=== PATIENT | female | born 1950 | race Caucasian/White ===

== ENCOUNTER 2020-09-03 12:14 | Inpatient (IN) | payer BC, MEDICARE ==
[~2020-09-03] VITALS: Ht 157.5 cm; Wt 83.2 kg
--- NOTE | 2020-09-03 12:20 | NUR ---
THE PATIENT IS BIBRA 89 FROM HOME C/O ALTERED MENTAL STATUS AND PER REPORT "WE FOUND THE PT ON THE FLOOR". THE PATIENT IS ALERT AND ORIENTED TO SELF AND PLACE. ABLE TO MAKE NEEDS KNOWN VERBALLY. IN ROOM AIR AND DENIES SOB. RESPIRATION REGULAR AND UNLABORED. DENIES PAIN. THE PATIENT CAME WITH LAC G 18. ALSO, NOTED LEFT UPPER CHEST UNDERSKIN PORT A CATH. THE PATIENT IS PROVIDED WITH A WARM BLANKET FOR COMFORT. ATTACHED TO THE MONITOR. WILL CONTINUE TO MONITOR. .
[2020-09-03] MEDS ORDERED: IV NS 0.9% 1,000 ML BAG IV ONE (12:30)
[2020-09-03 13:00] LABS: CALCIUM, SERUM 7.9 mg/dL (8.5-10.1); CARBON DIOXIDE 23 mmol/L (21-32); CHLORIDE 108 mmol/L (98-107); CREATININE 0.9 mg/dL (0.6-1.3); GLUCOSE 85 mg/dL (74-106); POTASSIUM 4.7 mmol/L (3.5-5.1); SODIUM SERUM 142 mmol/L (136-145); UREA NITROGEN, BLOOD 21 mg/dL (7-18)
[2020-09-03 13:01] LABS: SERUM AMMONIA 15 umol/L (11-32)
[2020-09-03 13:05] LABS: BASOPHILS % (AUTO) 0.2 % (0.0-2.0); HEMATOCRIT 38 % (33-45); LYMPHOCYTES # (AUTO) 0.8 /CMM (0.8-4.8); LYMPHOCYTES % (AUTO) 4.8 % (20.0-44.0); MEAN CORPUSCULAR HGB CONC 31 g/dl (31.0-36.0); MEAN CORPUSCULAR VOLUME 91 fL (82-100); MONOCYTES # (AUTO) 1.1 /CMM (0.1-1.30); MONOCYTES % (AUTO) 6.9 % (2.0-12.0); NEUTROPHILS # (AUTO) 9.6 /CMM (1.8-8.9); NEUTROPHILS % (AUTO) 59.7 % (43.0-81.0); PLATELET COUNT (AUTO) 68 /CMM (150-450); RED BLOOD CELL COUNT(AUTO) 4.19 MIL/uL (4.0-5.2)
[2020-09-03 13:08] LABS: EOSINOPHILS % (AUTO) 28.4 % (0.0-6.0)
--- NOTE | 2020-09-03 13:08 | NUR ---
SALVADOR, SISTER, . SISTER WANTS UPDATES.
[2020-09-03 13:15] LABS: ACETAMINOPHEN < 10 ug/ml (10-30); ALANINE AMINOTRANSFERASE 32 U/L (12-78); ALBUMIN 2.1 g/dL (3.4-5.0); ALCOHOL, BLOOD < 3 mg/dL (0-0); ALKALINE PHOSPHATASE 294 U/L (46-116); ASPARTATE AMINOTRANSFERASE 53 U/L (15-37); BILIRUBIN,DIRECT 0.3 mg/dL (0.0-0.2); BILIRUBIN,TOTAL 0.7 mg/dL (0.2-1.0); TOTAL PROTEIN, SERUM 6.2 g/dL (6.4-8.2)
--- NOTE | 2020-09-03 13:20 | NUR ---
URINE COLLECTED AND TAKEN IT TO THE LAB.
--- NOTE | 2020-09-03 13:22 | NUR ---
PAGED EPIC QUALITY MANAGEMENT COORDINATOR FOR ADMISSION
[2020-09-03] MEDS ORDERED: ENOXAPARIN SODIUM 80 MG/0.8 ML DISP.SYRIN SQ ONE (13:30)
[2020-09-03 13:32] LABS: BILIRUBIN,URINE SMALL (NEGATIVE); COLOR,URINE YELLOW (YELLOW); LEUKOCYTE ESTERASE ,URINE NEGATIVE (NEGATIVE); NITRITE, URINE NEGATIVE (NEGATIVE); PROTEIN,URINE TRACE mg/dl (NEGATIVE); UGLUCOSE NEGATIVE (NEGATIVE); UROBILINOGEN,URINE 0.2 EU/dL (0.2)
[2020-09-03] MEDS ORDERED: ENOXAPARIN SODIUM 100 MG/ML DISP.SYRIN SQ ONE (13:39)
[2020-09-03 13:41] LABS: THYROID STIMULATING HORMONE 3.914 uIU/mL (0.358-3.74)
[2020-09-03 13:52] LABS: RBC,URINE 0-2 /HPF (0-2); WBC,URINE 0-2 /HPF (0-3)
[2020-09-03 13:53] LABS: BACTERIA,URINE Rare /HPF (None Seen); SQUAMOUS EPITHELIAL CELL,UR Rare /HPF (None Seen)
[2020-09-03 13:57] LABS: BAND % (MANUAL) 1 % (0.0-5.0); EOSINOPHILS % (MANUAL) 31 % (0-4); LYMPHOCYTES % (MANUAL) 3 % (16-48); MONOCYTES % (MANUAL) 6 % (0-11.0); NEUTROPHILS % (MANUAL) 59 (42-76)
[2020-09-03] MEDS ORDERED: ENOXAPARIN SODIUM 80 MG/0.8 ML DISP.SYRIN SQ SCH (14:00)
[2020-09-03] MEDS ORDERED: ONDANSETRON HCL/PF 4 MG/2 ML VIAL IVP PRN (15:00)
[2020-09-03] MEDS ORDERED: MAGNESIUM HYDROXIDE 30 ML UDC PO PRN (15:00)
[2020-09-03] MEDS ORDERED: Z GUARD REMEDY 2 OZ OINT TP PRN (15:00)
[2020-09-03] MEDS ORDERED: ACETAMINOPHEN 325 MG TABLET PO PRN ×2 (15:00)
[2020-09-03] MEDS ORDERED: HYDROCODONE/APAP 5/325MG TABLET PO PRN ×2 (15:00)
[2020-09-03] MEDS ORDERED: MORPHINE SULFATE INJ 2 MG/ML DISP.SYRIN IV PRN ×2 (15:00)
[2020-09-03] MEDS ORDERED: MAG HYDROX/AL HYDROX/SIMETH 30 ML UDC PO PRN (15:00)
--- NOTE | 2020-09-03 15:14 | NUR ---
NURSING SUP CALLED WITH BED 309-1.
--- NOTE | 2020-09-03 15:24 | NUR ---
REPORT GIVEN TO AMBER JEFFERSON.
--- NOTE | 2020-09-03 15:48 | NUR ---
TRANSFERED THE PATIENT TO ROOM 309-1 PER ACLS PROTOCOL. THE PATIENT LEFT ER IN STABLE CONDITION.
--- NOTE | 2020-09-03 16:00 | NUR ---
NET DEVELOPER ADMITTING NOTES RECEIVED PATIENT VIA [facility] IN MEDICALLY STABLE CONDITION. VITAL SIGNS: BP: 113/71 HR 87 RR 18 TEMP 97.6 O2 96% SAFETY PRECAUTIONS IN PLACE; BED IN LOW POSITION AND LOCKED, RAILS UP X2, CALL LIGHT WITHIN REACH. WILL CONTINUE TO MONITOR PATIENT.
[2020-09-03] MEDS: IV 1/2NS 1000 ML 1,000 ML IV PRN (17:31)
[2020-09-03 18:00] VITALS: BP 113/71
[2020-09-03] MEDS: LORATADINE 10 MG TABLET PO SCH (18:13)
--- NOTE | 2020-09-03 19:04 | NUR ---
DRILLER PORTABLE CLOSING NOTES PATIENT RESTING IN BED, A/O X2. PATIENT ON ROOM AIR; BREATHING EVEN AND UNLABORED; NO SOB NOTED AT THIS TIME. NO COMPLAINS OF PAIN. TELE MONITOR WITH A CURRENT READING OF SR 87. IV ACCESS PRESENT ON LAC G #18; INFUSING .45NS @75 MLS/HR. SAFETY PRECAUTIONS IN PLACE; BED IN LOW POSITION AND LOCKED, RAILS UP X2, CALL LIGHT WITHIN REACH. WILL ENDORSE TO DIRECTOR OF EVENT SALES NURSE.
--- NOTE | 2020-09-03 19:10 | NUR ---
PROSTHETIC DENTIST OPENING NOTES: RECEIVED PATIENT IN BED,AWAKE. A/O X3. NO S/S OF DISTRESS NOTED. CALL LIGHT WITHIN REACH. BED ALARM ON. BED IN LOWEST ANDLOCKED POSITION. HOB ELEVATED.
[2020-09-03 20:00] VITALS: BP 105/63
--- NOTE | 2020-09-03 20:25 | NUR ---
RECEIVED A CRITICAL RESULTS OF TROPONIN=1.066, LANCE JACKSON INFORMED.
[2020-09-04] VITALS: BP 109/63
[2020-09-04] MEDS ORDERED: ENOXAPARIN SODIUM 80 MG/0.8 ML DISP.SYRIN SQ SCH (02:00)
[2020-09-04 04:00] VITALS: BP 114/77
--- NOTE | 2020-09-04 06:30 | NUR ---
PATIENT DID NOT VOID, BLADDER [id number] ML.
[2020-09-04 06:32] LABS: BASOPHILS % (AUTO) 0.3 % (0.0-2.0); HEMATOCRIT 35 % (33-45); HEMOGLOBIN 11.2 g/dL (11.5-14.8); LYMPHOCYTES % (AUTO) 6.7 % (20.0-44.0); MEAN CORPUSCULAR HGB CONC 32 g/dl (31.0-36.0); MEAN CORPUSCULAR VOLUME 92 fL (82-100); MONOCYTES # (AUTO) 1.1 /CMM (0.1-1.30); MONOCYTES % (AUTO) 7.5 % (2.0-12.0); NEUTROPHILS # (AUTO) 6.6 /CMM (1.8-8.9); PLATELET COUNT (AUTO) 67 /CMM (150-450); RED BLOOD CELL COUNT(AUTO) 3.82 MIL/uL (4.0-5.2); WHITE BLOOD COUNT (AUTO) 14.4 K/uL (4.3-11.0)
[2020-09-04 06:36] LABS: EOSINOPHILS % (AUTO) 39.5 % (0.0-6.0)
--- NOTE | 2020-09-04 06:54 | NUR ---
INFORMMANUEL PAULINO RE: NO VOID. BLADDER SCANNED.
[2020-09-04 07:29] LABS: ALBUMIN 1.9 g/dL (3.4-5.0); BILIRUBIN,TOTAL 0.5 mg/dL (0.2-1.0); CALCIUM, SERUM 7.5 mg/dL (8.5-10.1); CREATININE 0.9 mg/dL (0.6-1.3); MAGNESIUM 2.4 mg/dL (1.8-2.4); PHOSPHORUS 2.8 mg/dL (2.5-4.9); POTASSIUM 4.3 mmol/L (3.5-5.1); TOTAL PROTEIN, SERUM 5.8 g/dL (6.4-8.2)
[2020-09-04] MEDS: IV 1/2NS 1000 ML 1,000 ML IV PRN ×2 (07:36→18:24)
--- NOTE | 2020-09-04 07:49 | NUR ---
MS/RN OPENING NOTE RECEIVED PATIENT FROM BOARDING HOUSE COOK NURSE. PATIENT IS AWAKE IN BED. A/O X 3. NO ACUTE DISTRESS NOTED, DENIES ANY PAIN AT THIS TIME. PATIENT ON ROOM AIR TOLERATING WELL, NO SOB NOTED, BREATHING EVEN, NON LABORED. PER BOARDING HOUSE COOK REPORT PATIENT DID NOT VOID AND HAD BLADDER SCANNED SHOWING 253ML, WITH NO COMPLAINTS OF PAIN/DISCOMFORT, PRESSURE, OR URGENCY. BOARDING HOUSE COOK NURSE NOTIFIED MD, AWAITING RESPONSE. SAFETY MEASURES IN PLACE, BED LOCKED AND IN LOWEST POSITION, CALL LIGHT WITHIN REACH. WILL CONTINUE TO MONITOR AND ENSURE SAFETY.
[2020-09-04] MEDS: LORATADINE 10 MG TABLET PO SCH (08:15)
[2020-09-04 08:48] LABS: IRON, SERUM 38 ug/dl (50-175); TOTAL IRON BINDING CAPACITY 200 ug/dl (250-450)
[2020-09-04] MEDS ORDERED: ASPIRIN 81 MG TAB.CHEW PO SCH (09:00)
[2020-09-04 09:01] LABS: FERRITIN 346 ng/mL (8-388)
[2020-09-04] MEDS: IPRATROPIUM NEB FS 0.5 MG/2.5 ML AMPUL.NEB NEB SCH ×4 (09:36→19:22)
[2020-09-04] MEDS: ALBUTEROL FS 2.5 MG/3 ML VIAL.NEB NEB SCH ×4 (09:37→19:22)
[2020-09-04] MEDS ORDERED: diphenhydrAMINE HCL 25 MG CAPSULE PO PRN (10:30)
[2020-09-04] MEDS: HYDROCORTISONE 2.5% CREAM 28.4 GM TUBE TP SCH ×2 (11:45→17:24)
[2020-09-04] MEDS: METOPROLOL TARTRATE 50 MG TABLET PO SCH ×3 (12:00→23:23)
[2020-09-04 13:56] LABS: EOSINOPHILS % (MANUAL) 35 % (0-4); LYMPHOCYTES % (MANUAL) 7 % (16-48); MONOCYTES % (MANUAL) 6 % (0-11.0); NEUTROPHILS % (MANUAL) 52 (42-76)
[2020-09-04 16:00] VITALS: BP 125/76
--- NOTE | 2020-09-04 19:06 | NUR ---
MS/RN CLOSING NOTE PATIENT IS AWAKE IN BED. A/O X 3. NO ACUTE DISTRESS NOTED, DENIES ANY PAIN AT THIS TIME. PATIENT ON ROOM AIR TOLERATING WELL, NO SOB NOTED, BREATHING EVEN, NON LABORED. SAFETY MEASURES IN PLACE, BED LOCKED AND IN LOWEST POSITION, CALL LIGHT WITHIN REACH. ALL NEEDS MET THROUGHOUT THE SHIFT. WILL ENDORSE TO ACTIVATED SLUDGE ATTENDANT NURSE.
[2020-09-04 20:00] VITALS: BP_SYST 117; BP_SYST 118; BP_DIAS 61; BP_DIAS 65
[2020-09-04] MEDS: methylPREDNISolone SOD SUCC 125 MG/2ML VIAL IV SCH (20:00)
--- NOTE | 2020-09-04 20:22 | NUR ---
RN NOTES NEW ORDER OF METHYLPREDNISONE, PER SISTER AND CHRIS STEINBERG, TO HOLD MEDICATION, NEEDS APPROVAL OF PATIENT'S REGULAR ONCOLOGIST. ASKED PATIENT ABOUT INFORMATION ON ONCOLOGIST, PATIENT UNABLE TO GIVE INFORMATION DUE TO WEAKNESS, UNABLE TO TALK, ONLY MOUTH'S WORDS. SISTER ALSO AGREEABLE TO HOLD MEDICATION FOR NOW. Addendum: 09/05/20 at 0328 by ISIS CAST RN PATIENT AGREEABLE TO HOLD STEROIDS FOR NOW.
[2020-09-05] VITALS: BP 129/69
[2020-09-05 04:00] VITALS: BP 132/81
[2020-09-05] MEDS: METOPROLOL TARTRATE 50 MG TABLET PO SCH ×3 (05:52→17:18)
[2020-09-05 06:49] LABS: BASOPHILS % (AUTO) 0.2 % (0.0-2.0); HEMATOCRIT 37 % (33-45); HEMOGLOBIN 11.5 g/dL (11.5-14.8); LYMPHOCYTES # (AUTO) 0.9 /CMM (0.8-4.8); LYMPHOCYTES % (AUTO) 5.5 % (20.0-44.0); MEAN CORPUSCULAR HGB CONC 31 g/dl (31.0-36.0); MEAN CORPUSCULAR VOLUME 93 fL (82-100); MONOCYTES # (AUTO) 1.1 /CMM (0.1-1.30); MONOCYTES % (AUTO) 6.5 % (2.0-12.0); NEUTROPHILS # (AUTO) 9.1 /CMM (1.8-8.9); NEUTROPHILS % (AUTO) 53.5 % (43.0-81.0); RED BLOOD CELL COUNT(AUTO) 3.95 MIL/uL (4.0-5.2)
[2020-09-05] MEDS: IV 1/2NS 1000 ML 1,000 ML IV PRN ×2 (06:49→17:18)
[2020-09-05 06:57] LABS: ALBUMIN 1.7 g/dL (3.4-5.0); BILIRUBIN,TOTAL 0.7 mg/dL (0.2-1.0); CALCIUM, SERUM 7.1 mg/dL (8.5-10.1); CREATININE 0.8 mg/dL (0.6-1.3); MAGNESIUM 2.3 mg/dL (1.8-2.4); PHOSPHORUS 2.4 mg/dL (2.5-4.9); POTASSIUM 4.4 mmol/L (3.5-5.1); TOTAL PROTEIN, SERUM 5.4 g/dL (6.4-8.2)
[2020-09-05 07:18] LABS: EOSINOPHILS % (AUTO) 34.3 % (0.0-6.0); PLATELET COUNT (AUTO) 47 /CMM (150-450)
--- NOTE | 2020-09-05 07:43 | NUR ---
RN NOTES PM SHIFT LETHARGIC, AROUSEABLE BY VOICE AND TOUCH, ALERT AND ORIENTED X1, ON ROOM AIR, NO COMPLAIN OF PAIN, UNABLE TO TALK, MOUTHS WORDS, SHAKES AND NOD HEAD FOR YES OR NO, HX OF ESOPHAGEAL CANCER, SR ON THE TELE, PER DR. ABBOTT, RULE OUT AUTO IMMUNE INDUCED ENCEPHALOPATHY, AM LABS. WILL NEED MEDICAL RECORDS FROM [facility] ONCOLOGY DR. BERONICA NOLAN NOTIFIED DR. AGARWAL REGARDING TROPONIN 1.884, NO NEW ORDER, ALSO NOTIFIED DR. ABBOTT REGARDING PLATELET OF 47, AWAITING RESPONSE.
--- NOTE | 2020-09-05 07:47 | NUR ---
RN NOTES NOTIFIED DR. ABBOTT OF PLATELET OF 47, NO NEW ORDER
[2020-09-05 08:00] VITALS: BP 122/80
[2020-09-05] MEDS ORDERED: LACTULOSE 10 G/15 ML UDC (PYXIS) PO PRN (08:00)
--- NOTE | 2020-09-05 08:00 | NUR ---
RN Opening note Received patient in bed, AO x 2-3, able to responds all stimuli. Patient having US ABD. Respiratory even and unlabored on room air. Skin is warm to touch, keep clean/dry, intact IV site, and keep remains intact placement. Kept elevated HOB for ensure airway and aspiration precaution, also lowest bed position for safety. Call light within reach, will continue to monitor. Addendum: 09/05/20 at 0815 by SHELL BOSWELL RN Error
--- NOTE | 2020-09-05 08:00 | NUR ---
RN Opening note Received patient in bed, lethargic. Patient having US ABD. Respiratory even and unlabored on room air. Skin is warm to touch, keep clean/dry, intact IV site, and keep remains intact placement. Kept elevated HOB for ensure airway and aspiration precaution, also lowest bed position for safety. Noticed PLT 47, Trop 1.884 and MD aware NNO. Call light within reach, will continue to monitor.
[2020-09-05] MEDS: ALBUTEROL FS 2.5 MG/3 ML VIAL.NEB NEB SCH ×4 (08:27→20:23)
[2020-09-05] MEDS: IPRATROPIUM NEB FS 0.5 MG/2.5 ML AMPUL.NEB NEB SCH ×4 (08:27→20:23)
[2020-09-05] MEDS: HYDROCORTISONE 2.5% CREAM 28.4 GM TUBE TP SCH ×2 (08:50→17:23)
[2020-09-05] MEDS: methylPREDNISolone SOD SUCC 125 MG/2ML VIAL IV SCH (08:51)
[2020-09-05] MEDS: LORATADINE 10 MG TABLET PO SCH (08:51)
--- NOTE | 2020-09-05 08:51 | NUR ---
Patient seen by ST who recommended hold oral intake or medications due to does not awake condition.
[2020-09-05 10:29] LABS: EOSINOPHILS % (MANUAL) 33 % (0-4); MONOCYTES % (MANUAL) 4 % (0-11.0); NEUTROPHILS % (MANUAL) 63 (42-76)
[2020-09-05] MEDS ORDERED: NEUTRA PHOS 1 POWD.PACKET PO ONE (10:30)
--- NOTE | 2020-09-05 10:46 | NUR ---
Patient unable to swallow, will hold medication MD made aware.
[2020-09-05] MEDS: LACTULOSE UDC 200 G in SODIUM CHLORIDE IRRIG SOLUTION 400 ML IR SCH ×3 (11:49→20:30)
--- NOTE | 2020-09-05 12:24 | NUR ---
Decrease bp: 95/58, p-84, will hold Lopressor.
[2020-09-05 12:52] LABS: LYMPHOCYTES % (MANUAL) 0 % (16-48)
--- NOTE | 2020-09-05 14:47 | NUR ---
Breaking Machine Operator: senior manager creative services consult was requested per MD as the patient lives alone. Patient is a 70-year-old, white female. Per ED physician, patient was admitted on 09/03/2020 due to altered mental status after being found on the floor of her home ([address] [place] [address]; [phone]). SW attempted to meet with the patient in her hospital room on the med-surgical unit. Patient was lethargic and therefore SW was unable to interview the patient. KRAIG spoke to AMBER Geiger who had reached out to the patients sister Adelina ([phone]). AMBER Geiger provided this SW with Kallie contact information. KRAIG called patients sister Adelina, and spoke to Adelina to discuss coordination of care. Adelina mentioned that the patient is independent but has had some trouble standing for the past couple of weeks. KRAIG asked Adelina if the patient is independent with her ADLs and she reported that the patient can care for herself. KRAIG asked Adelina about the patients finances and she reported that the patient receives pension, Medicare, and Social Security Income. KRAIG discussed discharge plan with Adelina: home v. alternative option. Patient's family is unsure about discharge options at this time. KRAIG will work nursing and case management, as needed, to ensure a safe and proper discharge plan. SW will follow-up with patient, and will remain available to the patient and family, as needed.
[2020-09-05 16:00] VITALS: BP 111/68
--- NOTE | 2020-09-05 18:25 | NUR ---
RN Closing note Patient in bed, lethargic condition but stable all vital signs. Continue to given Lactulose enema for high ammonia level. Patient done ST evel and kept hold oral intake include medications.due to patient is not awake. Faxed over and requested medical record to [facility] oncology/Dr. Reny Jimenez. Respiratory even and unlabored on room air, skin is warm to touch, keep clean/dry, skin care provided. Kept elevated HOB for ensure airway and aspiration precaution, also lowest bed position for safety. Call light within reach, will endorse global marketing operations manager.
[2020-09-05 20:00] VITALS: BP 104/58
[2020-09-06 00:26] VITALS: BP 96/66
[2020-09-06] MEDS ORDERED: CEFTRIAXONE 1 G VIAL ONE ×2 (00:32→01:02)
[2020-09-06] MEDS ORDERED: VANCOMYCIN 1 GM VIAL ONE (00:33)
[2020-09-06] MEDS: LACTULOSE UDC 200 G in SODIUM CHLORIDE IRRIG SOLUTION 400 ML IR SCH ×7 (00:33→23:56)
[2020-09-06] MEDS: CEFTRIAXONE 2 G in IV D5W 100 ML IV SCH ×2 (00:38→20:41)
[2020-09-06] MEDS: VANCOMYCIN 1 GM in IV D5W 250 ML IV SCH ×2 (01:16→17:21)
[2020-09-06] MEDS: METOPROLOL TARTRATE 50 MG TABLET PO SCH ×5 (06:00→23:54)
[2020-09-06 06:06] VITALS: BP 113/57
--- NOTE | 2020-09-06 06:08 | NUR ---
MS RN CLOSING NOTES: PATIENT IN BED, STILL LETHARGIC, COUGHS OCCASIONALLY,NO PHLEGM. HOB ELEVATED AT ALL TIMES. NO S/S OF DISTRESS NOTED. CALL LIGHT WITHIN REACH. BED ALARM ON. BED IN LOWEST AND LOCKED POSITION. OCCASIONALLY SCRATCHES HER SKIN ON THE NECK PART. HEELS OFFLOADED. TURNED AND REPOSITIONED [id number]. STILL WITH GENERALIZED RASHES. LACTULOSE RECTAL IRRIGATION DONE [id number]. KEPT PATIENT DRY AND CLEANED. WITH O2 AT 3L/MIN NASAL CANNULA.
[2020-09-06 06:26] LABS: BASOPHILS % (AUTO) 0.2 % (0.0-2.0); EOSINOPHILS % (AUTO) 0.4 % (0.0-6.0); HEMATOCRIT 34 % (33-45); HEMOGLOBIN 10.7 g/dL (11.5-14.8); LYMPHOCYTES # (AUTO) 0.9 /CMM (0.8-4.8); LYMPHOCYTES % (AUTO) 7.6 % (20.0-44.0); MEAN CORPUSCULAR HGB CONC 31 g/dl (31.0-36.0); MEAN CORPUSCULAR VOLUME 94 fL (82-100); MONOCYTES % (AUTO) 8.7 % (2.0-12.0); NEUTROPHILS # (AUTO) 9.6 /CMM (1.8-8.9); NEUTROPHILS % (AUTO) 83.1 % (43.0-81.0); PLATELET COUNT (AUTO) 57 /CMM (150-450); RED BLOOD CELL COUNT(AUTO) 3.62 MIL/uL (4.0-5.2); WHITE BLOOD COUNT (AUTO) 11.5 K/uL (4.3-11.0)
[2020-09-06 06:48] LABS: CREATININE 0.8 mg/dL (0.6-1.3); MAGNESIUM 2.6 mg/dL (1.8-2.4); PHOSPHORUS 2.9 mg/dL (2.5-4.9); POTASSIUM 4.1 mmol/L (3.5-5.1)
[2020-09-06] MEDS: ALBUTEROL FS 2.5 MG/3 ML VIAL.NEB NEB SCH ×4 (07:33→20:20)
[2020-09-06] MEDS: IPRATROPIUM NEB FS 0.5 MG/2.5 ML AMPUL.NEB NEB SCH ×4 (07:33→20:20)
--- NOTE | 2020-09-06 07:35 | NUR ---
RN NOTE RECEIVED PATIENT IN BED. LETHARGIC, NOT RESPONSIVE. ON 3 LPM, NC. NO SOB NOTED. IN NO APPARENT DISTRESS. IV ACCESS ON R HAND #22 G, INTACT, 1/2 NS RUNNING @ 75 ML/HR. SAFETY/FALL/ASPIRATION PRECAUTIONS OBSERVED. HOB ELEVATED. SIDE RAILS UP X2. CALL LIGHT WITHIN REACH. WILL CONTINUE PLAN OF CARE.
[2020-09-06 08:00] VITALS: BP 90/56
[2020-09-06 08:07] LABS: *ANA ANTI-CENTROMERE B AB <0.2 AI (0.0-0.9); *ANA ANTI-DNA(DS) AB, QN <1 IU/mL (0-9); *ANA ANTI-JO-1 <0.2 AI (0.0-0.9); *ANA ANTICHROMATIN ANTIBODY <0.2 AI (0.0-0.9); *ANA RNP ANTIBODIES <0.2 AI (0.0-0.9); *ANA SJOGREN'S ANTI-SS-A <0.2 AI (0.0-0.9); *ANA SJOGREN'S ANTI-SS-B <0.2 AI (0.0-0.9); *ANAANTI-SCLERODERMA-70 AB <0.2 AI (0.0-0.9); *ANASMITH AB <0.2 AI (0.0-0.9); IMMUNOGLOBULIN A, SERUM 283 mg/dL (87-352); IMMUNOGLOBULIN G, SERUM 1302 mg/dL (586-1602); IMMUNOGLOBULIN M, SERUM 116 mg/dL (26-217)
[2020-09-06] MEDS: LORATADINE 10 MG TABLET PO SCH (08:56)
[2020-09-06] MEDS: methylPREDNISolone SOD SUCC 125 MG/2ML VIAL IV SCH (09:00)
[2020-09-06] MEDS: HYDROCORTISONE 2.5% CREAM 28.4 GM TUBE TP SCH ×2 (09:00→17:21)
--- NOTE | 2020-09-06 09:23 | NUR ---
MS RN NOTE HELD PO MED. PATIENT WAS SEEN LETHARGIC AND NOT FULLY AWAKE. PT IS AT RISK FOR ASPIRATION. WILL CONTINUE TO MONITOR THROUGHOUT THE SHIFT.
--- NOTE | 2020-09-06 10:55 | NUR ---
RN NOTE LAB CALLED, SPOKE WITH CRISTHIAN, CRITICAL VALUE TROPONIN 0.931, INFORMED CRISTIANE GUEVARA NP.
[2020-09-06 11:07] LABS: *SPE A/G RATIO 0.6 (0.7-1.7); *SPE ALBUMIN 1.9 g/dL (2.9-4.4); *SPE ALPHA-1-GLOBULIN 0.4 g/dL (0.0-0.4); *SPE ALPHA-2-GLOBULIN 0.7 g/dL (0.4-1.0); *SPE BETA GLOBULIN 0.8 g/dL (0.7-1.3); *SPE GLOBULIN, TOTAL 3.1 g/dL (2.2-3.9); *SPE M-SPIKE Not Observed g/dL (Not Observed); *SPEGAMMA GLOBULIN 1.3 g/dL (0.4-1.8)
--- NOTE | 2020-09-06 12:19 | NUR ---
RN NOTE WITHHOLDING PO MEDS. PT IS LETHARGIC. WILL CONTINUE TO MONITOR THROUGHOUT THE SHIFT.
[2020-09-06] MEDS ORDERED: LIDOCAINE MPF 1%-EPI 1:200,000 30 ML VIAL IJ ONE (14:00)
--- NOTE | 2020-09-06 14:03 | NUR ---
RN NOTE PHONE CONSENT FROM THE PT'S SISTER (SALVADOR) FOR PUNCH BIOPSY OF THE SKIN. CONSENT SIGNED WITH CRISTIANE SIMPSON AND I A WITNESS.
[2020-09-06] MEDS: IV D5/0.45 NACL 1,000 ML IV PRN (15:13)
[2020-09-06 16:00] VITALS: BP 108/76
--- NOTE | 2020-09-06 17:27 | NUR ---
RN NOTE PATIENT STILL LETHARGIC OF THIS MOMENT. HELD PO METOPROLOL.
--- NOTE | 2020-09-06 18:34 | NUR ---
MS RN CLOSING NOTE PATIENT IN BED. LETHARGIC, SEEN SOME IMPROVEMENTS THIS LATE AFTERNOON. PATIENT WAS OPENING HER EYES. CONSUMED BOWL HALF OF PUREE. OBEYS SIMPLE COMMANDS, SQUEEZE HANDS UPON COMMAND. CURRENTLY ON NC AT 3 LPM. NO SOB NOTED. IN NO APPARENT DISTRESS. IV ACCESS ON R HAND #22 G, INTACT AND PATENT, D5 1/2 NS RUNNING @ 70 ML/HR. ROUTINE MEDS WERE GIVEN ORDERED. CHANGED BED TO SPECIALTY MATTRESS. SAFETY/FALL/ASPIRATION PRECAUTIONS OBSERVED. HOB ELEVATED. SIDE RAILS UP X2. CALL LIGHT WITHIN REACH. WILL ENDORSE CONTINUITY OF CARE TO ONCOMING SHIFT.
--- NOTE | 2020-09-06 19:05 | NUR ---
MS RN OPENING NOTES: RECEIVED PT IN BED, AWAKE, LEFT EYE FULLY OPEN, RIGHT EYE SLIGHTLY OPEN. ASKED IF SHE IS OKAY, PATIENT ANSWERED BACK BY NODDING HER HEAD. ASKED IF SHE CAN SQUISH MY HAND AND PATIENT DID WITH HER RIGHT HAND SLIGHTLY, LEFT HAND IS MORE WEAKER THAN THE RIGHT HAND BUT SHE TRIED. HOB ELEVATED AT 35 DEGREES. NO S/S OF DISTRESS NOTED. CALL LIGHT WITHIN REACH AND PATIENT IS HOLDING IT. BED ALARM ON. BED IN LOWEST AND LOCKED POSITION. ON O2 AT 3L/MIN NASLA CANNULA.
[2020-09-06 20:30] VITALS: BP 118/80
--- NOTE | 2020-09-06 20:31 | NUR ---
INFORMED DR HUGGINS WITH THE RESULTS OF THE MRI OF THE BRAIN.CHARGE NURSE ROWAN MADE AWARE.
[2020-09-06] MEDS ORDERED: GADOTERATE MEGLUMINE 10 MMOL/20 ML VIAL IV ONE (20:54)
[2020-09-06] MEDS: ENSURE ENLIVE CHOC 237 ML CAN PO SCH (21:00)
--- NOTE | 2020-09-06 21:19 | NUR ---
CALLED DR GLASS AND RELAYED RESULTS OF THE MRI OF THE BRAIN WITH ORDERS MADE AND CARRIED OUT.
[2020-09-06] MEDS ORDERED: ASPIRIN 81 MG TAB.CHEW PO SCH (21:30)
[2020-09-06] MEDS ORDERED: CLOPIDOGREL BISULFATE 75 MG TABLET PO ONE (21:30)
--- NOTE | 2020-09-06 22:12 | NUR ---
ASA AND PLAVIX MEDS CRUSHED GIVEN WITH PUDDING, GIVEN AT SLOW RATE ONE TEASPOON SIP OF WATER AT A TIME, PATIENT ABLE TO SWALLOW WITHOUT DIFFICULTIES AND NO COUGHING. PATIENT ON 90 DEGREES POSITION. SWALLOW SAFETY PRECAUTIONS FOLLOWED RECOMMENDED BY THE SPEECH THERAPIST, SIGN POSTED IN THE ROOM. PATIENT IS FULLY AWAKE. FOLLOWS COMMANDS LIKE WHEN ASKED HER TO OPEN HER MOUTH, PATIENT FOLLOWED. WILL KEEP THE UPRIGHT POSITION AT FOR 30 MINS AFTER THE MED.
[2020-09-07 00:02] VITALS: BP 115/65
[2020-09-07 05:01] LABS: OCCULT BLOOD STOOL POSITIVE (NEGATIVE)
[2020-09-07] MEDS: LACTULOSE UDC 200 G in SODIUM CHLORIDE IRRIG SOLUTION 400 ML IR SCH ×6 (05:18→22:57)
[2020-09-07 05:33] VITALS: BP 129/74
[2020-09-07] MEDS: METOPROLOL TARTRATE 50 MG TABLET PO SCH ×4 (05:33→22:58)
[2020-09-07 06:03] LABS: BASOPHILS # (AUTO) 0.2 /CMM (0.0-0.2); BASOPHILS % (AUTO) 1.1 % (0.0-2.0); EOSINOPHILS % (AUTO) 0.2 % (0.0-6.0); HEMATOCRIT 37 % (33-45); HEMOGLOBIN 11.4 g/dL (11.5-14.8); LYMPHOCYTES # (AUTO) 0.6 /CMM (0.8-4.8); LYMPHOCYTES % (AUTO) 4.6 % (20.0-44.0); MEAN CORPUSCULAR HGB CONC 31 g/dl (31.0-36.0); MEAN CORPUSCULAR VOLUME 93 fL (82-100); MONOCYTES % (AUTO) 7.4 % (2.0-12.0); NEUTROPHILS # (AUTO) 11.9 /CMM (1.8-8.9); NEUTROPHILS % (AUTO) 86.7 % (43.0-81.0); PLATELET COUNT (AUTO) 80 /CMM (150-450); RED BLOOD CELL COUNT(AUTO) 3.97 MIL/uL (4.0-5.2); WHITE BLOOD COUNT (AUTO) 13.7 K/uL (4.3-11.0)
--- NOTE | 2020-09-07 06:25 | NUR ---
MS RN CLOSING NOTES: PATIENT IN BED, AWAKE, ALERT, NO S/S OF DISTRESS NOTED. CALL LIGHT WITHIN REACH. BED ALARM ON. BED IN LOWEST AND LOCKED POSITION. HOB ELEVATED AT ALL TIMES. OFFLOADED. TURNED AND REPOSITIONED Q2 HOURS.
[2020-09-07 06:51] LABS: CREATININE 0.8 mg/dL (0.6-1.3); MAGNESIUM 2.8 mg/dL (1.8-2.4); POTASSIUM 4.1 mmol/L (3.5-5.1)
--- NOTE | 2020-09-07 07:30 | NUR ---
MS OPENING NOTE PATIENT ALERT, ABLE TO OPEN EYES AND NOD HEAD WITH VERBAL AND TACTILE. ABLE TO FOLLOW SOME INSTRUCTIONS. RASHES/HIVES THROUGHOUT THE BODY OBSERVED. IV SITE INTACT AND PATENT. ASPIRATION PRECAUTIONS IN PLACE: HOB ELEVATED AT ALL TIMES. SAFETY PRECAUTIONS IN PLACE. BED IN LOWEST POSITION, LOCKED IN PLACE, AND SIDE RAILS UP. WILL CONTINUE TO MONITOR.
[2020-09-07] MEDS: ALBUTEROL FS 2.5 MG/3 ML VIAL.NEB NEB SCH ×4 (07:51→19:34)
[2020-09-07] MEDS: IPRATROPIUM NEB FS 0.5 MG/2.5 ML AMPUL.NEB NEB SCH ×4 (07:51→19:35)
[2020-09-07 08:00] VITALS: BP 113/73
--- NOTE | 2020-09-07 08:20 | NUR ---
MS RN DUE MEDS GIVEN, PATIENT FAIRLY TOLERATED W/ COUGHING UPON TAKING CRUSHED MEDS, WILL HOLD PO INTAKE AT THIS TIME, WILL WAIT FOR SWALLOW EVAL TO BE DONE, LANCE SAUER IS AWARE.
[2020-09-07] MEDS ORDERED: CLOPIDOGREL BISULFATE 75 MG TABLET PO SCH (09:00)
--- NOTE | 2020-09-07 09:00 | NUR ---
MS RN STROKE ASSESSMENT INITIATED, WILL WAIT FOR FURTHER ORDERS.
[2020-09-07] MEDS: IV D5/0.45 NACL 1,000 ML IV PRN ×2 (09:01→22:49)
[2020-09-07] MEDS: ENSURE ENLIVE CHOC 237 ML CAN PO SCH ×2 (09:46→17:00)
[2020-09-07] MEDS: methylPREDNISolone SOD SUCC 125 MG/2ML VIAL IV SCH (09:46)
[2020-09-07] MEDS: LORATADINE 10 MG TABLET PO SCH (09:46)
[2020-09-07] MEDS: HYDROCORTISONE 2.5% CREAM 28.4 GM TUBE TP SCH ×2 (09:46→18:24)
[2020-09-07] MEDS: VANCOMYCIN 1 GM in IV D5W 250 ML IV SCH (09:47)
[2020-09-07] MEDS: ASPIRIN 81 MG TAB.CHEW PO SCH (09:47)
[2020-09-07 09:59] LABS: LYMPHOCYTES % (MANUAL) 7 % (16-48); MONOCYTES % (MANUAL) 7 % (0-11.0); NEUTROPHILS % (MANUAL) 86 (42-76)
[2020-09-07] MEDS ORDERED: HEPARIN INFUSION/D5W 500 ML IV PRN (11:30)
--- NOTE | 2020-09-07 11:30 | NUR ---
MS RN DR. MARINO ORDERED HEPARIN DRIP TO BE INITIATED, WILL CALL AND MADE HER AWARE,PATIENT HAS DARK STOOL, POSITIVE OCCULT NOTED, AND DR. AGARWAL DOES NOT WANT TO INITIATE ANTI COAG THIS TIME.
--- NOTE | 2020-09-07 12:00 | NUR ---
MS RN DR. ABBOTT CALLED BACK , WANTS TO CONTACT DR. SANCHEZ TO SPEAK W/ DAUGHTER FIRST.
--- NOTE | 2020-09-07 13:00 | NUR ---
MS CLARK CEPHULAC NOT GIVEN AT THIS TIME, PATIENT HAS ELEVATED HR-170, WILL MONITOR PATIENT.
--- NOTE | 2020-09-07 15:05 | NUR ---
SS NOTE: SW attempted to meet with pt. to complete PHQ9 for code Stroke. However, The pt. is not awake or alert, with eyes closed and not rousable to verbal cues. SW called pt.'s name put multiple times and no response from pt. KRAIG spoke to charge nurse, Shari who stated that the Hospitalist, Cristi Kirkland will speak to the family about placing this pt. on Hospice. Noted. SW will be available as needed.
--- NOTE | 2020-09-07 15:40 | NUR ---
MS RN WAS SEEN BY DR. BERNAL, NO ORDER NOTED.
[2020-09-07] MEDS: HEPARIN INFUSION/D5W 500 ML IV PRN (15:57)
[2020-09-07 16:00] VITALS: BP 112/71
--- NOTE | 2020-09-07 16:00 | NUR ---
MS CLARK HEPARIN DRIP WAS INITIATED/ W/O ADVERSE REACTION. WILL MONITOR PATIENT.
--- NOTE | 2020-09-07 18:47 | NUR ---
MS RN ON BED, ALL NEEDS ATTENDED, NO DISTRESS NOTED,WILL ENDORSE TO BALLET DANCER FOR DICKSON.
--- NOTE | 2020-09-07 19:05 | NUR ---
SAFEMAKER OPENING NOTES: RECEIVED PATIENT IN BED, AWAKE, EYES ARE FULLY OPEN. HOB ELEVATED AT 35 DEGREES. BED ALARM ON. BED IN LOWEST AND LOCKED POSITION. ON HEPARIN DRIP [id number] UNITS/HOUR. PATIENT IS NPO. ACCORDING TO THE DAYSHIFT RN PATIENT WAS ABLE TO TALK. WITH O2 AT 3L/MIN NASAL CANNULA.
[2020-09-07 20:00] VITALS: BP 118/68
--- NOTE | 2020-09-07 20:35 | NUR ---
Send messages to Dr Jones RE: if it's okay to hold the lactulose irrigations for tonight and the morning doses due to patient is on heparin drip now and had an episode of black stool and positive for stool OB.
[2020-09-07] MEDS: CEFTRIAXONE 2 G in IV D5W 100 ML IV SCH (20:51)
--- NOTE | 2020-09-07 23:22 | NUR ---
CALLED THE EPIC RE: TO INFORM MD FOR THE OACM=773.3 SECONDS, WILL PAGE THE DOCTOR TO CALL BACK. CHARGE NURSE NICOLASA MADE AWARE.
--- NOTE | 2020-09-07 23:50 | NUR ---
DR HUGGINS CALLED BACK AND INFORMED OF qMST=073.3 SECONDS, MD STATED TO FOLLOW THE PROTOCOL. CHARGE NURSE NICOLASA MADE AWARE.
--- NOTE | 2020-09-07 23:52 | NUR ---
SENT MESSAGES TO DR HUGGINS RE: CLARIFICATIONS OF THE ORDER IF MD WANTS TO HOLD THE HEPARIN DRIP FOR AN HOUR THEN DECREASE DRIP BY 3 UNITS/KG/H, WAITING FOR THE MD RESPONSE.
[2020-09-08] VITALS (7 sets, daily range): BP systolic 114–134; BP diastolic 62–77
--- NOTE | 2020-09-08 00:15 | NUR ---
HEPARIN DRIP HELD PER MD ORDER.
--- NOTE | 2020-09-08 01:15 | NUR ---
HEPARIN DRIP RESUMED AT 1200 UNITS/ HOUR. NEXT aPTT DRAW WILL BE AT 0715, WILL ENDORSE TO THE NEXT SHIFT RN.
--- NOTE | 2020-09-08 02:56 | NUR ---
Patient had a BM, greenish, liquidy, moderate amount, cleansed with soap and water, pat dry, and mepilex foam dressing placed on the sacral area. Turned patient to the right side, heels offloaded.HOB elevated at 35 degrees.
[2020-09-08] MEDS: LACTULOSE UDC 200 G in SODIUM CHLORIDE IRRIG SOLUTION 400 ML IR SCH ×3 (03:00→11:00)
[2020-09-08] MEDS: VANCOMYCIN 1 GM in IV D5W 250 ML IV SCH ×2 (04:41→22:16)
[2020-09-08] MEDS: METOPROLOL TARTRATE 50 MG TABLET PO SCH ×3 (06:00→18:12)
--- NOTE | 2020-09-08 06:11 | NUR ---
MANAGER CLOSING NOTES: PATIENT IN BED, AWAKE, ALERT. EARLIER THIS MORNING PATIENT SAID" ITCHY". NO S/S OF DISTRESS NOTED. CALL LIGHT WITHIN REACH. BED ALARM ON. BED IN LOWEST AND LOCKED POSITION. HOB ELEVATED AT ALL TIMES. NO BLEEDING NOTED. NO MELENA. NO COMPLAIN OF PAIN. ON HEPARIN DRIP AT 1200 UNITS/HOUR. TURNED AND REPOSITIONED Q 2HOURS. HEELS OFFLOADED. NEXT aPTT DRAW WILL BE AT 0715, WILL ENDORSE TO THE NEXT SHIFT RN.
[2020-09-08 07:34] LABS: BASOPHILS % (AUTO) 0.2 % (0.0-2.0); HEMATOCRIT 35 % (33-45); HEMOGLOBIN 11.1 g/dL (11.5-14.8); LYMPHOCYTES # (AUTO) 0.9 /CMM (0.8-4.8); LYMPHOCYTES % (AUTO) 4.1 % (20.0-44.0); MEAN CORPUSCULAR HGB CONC 32 g/dl (31.0-36.0); MEAN CORPUSCULAR VOLUME 91 fL (82-100); MONOCYTES # (AUTO) 1.2 /CMM (0.1-1.30); MONOCYTES % (AUTO) 5.5 % (2.0-12.0); PLATELET COUNT (AUTO) 91 /CMM (150-450); RED BLOOD CELL COUNT(AUTO) 3.82 MIL/uL (4.0-5.2); WHITE BLOOD COUNT (AUTO) 21.6 K/uL (4.3-11.0)
[2020-09-08] MEDS: ALBUTEROL FS 2.5 MG/3 ML VIAL.NEB NEB SCH ×4 (07:34→19:30)
[2020-09-08] MEDS: IPRATROPIUM NEB FS 0.5 MG/2.5 ML AMPUL.NEB NEB SCH ×4 (07:34→19:30)
[2020-09-08 07:47] LABS: EOSINOPHILS % (AUTO) 39.2 % (0.0-6.0)
[2020-09-08 07:48] LABS: CALCIUM, SERUM 6.3 mg/dL (8.5-10.1); CREATININE 0.8 mg/dL (0.6-1.3); MAGNESIUM 2.3 mg/dL (1.8-2.4); POTASSIUM 3.7 mmol/L (3.5-5.1)
[2020-09-08] MEDS: ENSURE ENLIVE CHOC 237 ML CAN PO SCH ×3 (08:00→17:58)
--- NOTE | 2020-09-08 08:15 | NUR ---
MS DISPENSER OPERATOR CALLED TO REPORT CRITICAL VALUE APTT OF 166.5. HEPARIN DRIP ON PAUSE. WILL NOTIFY
--- NOTE | 2020-09-08 08:20 | NUR ---
MS RN NOTE NOTIFIED DR. ABBOTT AND CRISTIANE GUEVARA NP ABOUT CRITICAL LAB VALUE APTT OF 166.5 WELL HEPARIN DRIP PROTOCOL. INSTRUCTED BY MD AND FORESTRY AID TO FOLLOW PROTOCOL. WILL CONTINUE TO PAUSE HEPARIN DRIP UNTIL 0915 AND DECREASED HEPARIN DRIP UNITS/ HR TO 950 UNITS/ HOUR IN COMPLIANCE WITH THE PROTOCOL. NEXT APTT BLOOD DRAW AT 1500 TODAY. CHARGE NURSE AWARE.
[2020-09-08] MEDS: LORATADINE 10 MG TABLET PO SCH (08:30)
[2020-09-08] MEDS: ASPIRIN 81 MG TAB.CHEW PO SCH (08:30)
[2020-09-08] MEDS: methylPREDNISolone SOD SUCC 125 MG/2ML VIAL IV SCH (09:23)
[2020-09-08] MEDS: HYDROCORTISONE 2.5% CREAM 28.4 GM TUBE TP SCH ×2 (09:25→17:59)
--- NOTE | 2020-09-08 10:30 | NUR ---
WORLD DESIGNER OPENING NOTE RECEIVED PATIENT IN BED, EYES CLOSED, EASILY AWAKEN. PATIENT SOMEWHAT VERBAL NOW. SAID "OKAY" AND "THANK YOU" WHEN I UPDATED THE BOARD AND RE-INTRODUCED MYSELF. RASHES/HIVES STILL PRESENT THROUGHOUT THE BODY. HEPARIN DRIP AT 1200 UNITS/ HR. TOLERATING 3 L OF OXYGEN WITH 97% SATURATION. SAFETY MEASURES IN PLACE: BED IN LOCKED AND LOWEST POSITION, SIDE RAILS UP, AND HOURLY ROUNDING. PATIENT CONTINUES TO BE NPO. ASPIRATION PRECAUTIONS IN PLACE. WILL CONTINUE TO MONITOR. Addendum: 09/08/20 at 1037 by NISHA PADILLA RN NOTE AT [id number]
[2020-09-08 10:31] LABS: EOSINOPHILS % (MANUAL) 34 % (0-4); LYMPHOCYTES % (MANUAL) 2 % (16-48); MONOCYTES % (MANUAL) 3 % (0-11.0); NEUTROPHILS % (MANUAL) 61 (42-76)
--- NOTE | 2020-09-08 11:00 | NUR ---
ms rn was seen by justice masterson/ new orders made and carried out.
[2020-09-08] MEDS: HEPARIN INFUSION/D5W 500 ML IV PRN (12:37)
--- NOTE | 2020-09-08 15:00 | NUR ---
ms rn was seen by dr. denise's leaded glass installer w/ orders made and carried out.
[2020-09-08] MEDS ORDERED: LACTULOSE 10 G/15 ML UDC (PYXIS) PO PRN (15:30)
--- NOTE | 2020-09-08 16:00 | NUR ---
ms jerilyn aptt - 109.3, held drip for one hour per protocol. ,
--- NOTE | 2020-09-08 17:00 | NUR ---
ms rn resumed drip and adjusted down to 700units/hr, per protocol per md's order.
--- NOTE | 2020-09-08 18:57 | NUR ---
ms rn patient on bed,no distress noted, heparin drip on going, no distress noted.
[2020-09-08] MEDS: CEFTRIAXONE 2 G in IV D5W 100 ML IV SCH (21:49)
[2020-09-09] VITALS: BP 126/69
[2020-09-09] MEDS: METOPROLOL TARTRATE 50 MG TABLET PO SCH ×5 (01:18→23:03)
[2020-09-09 04:00] VITALS: BP 121/67
[2020-09-09 05:53] LABS: BASOPHILS % (AUTO) 0.1 % (0.0-2.0); EOSINOPHILS % (AUTO) 6.3 % (0.0-6.0); HEMATOCRIT 31 % (33-45); HEMOGLOBIN 9.7 g/dL (11.5-14.8); LYMPHOCYTES # (AUTO) 0.8 /CMM (0.8-4.8); MEAN CORPUSCULAR HGB CONC 32 g/dl (31.0-36.0); MEAN CORPUSCULAR VOLUME 92 fL (82-100); MONOCYTES # (AUTO) 0.9 /CMM (0.1-1.30); MONOCYTES % (AUTO) 8.2 % (2.0-12.0); NEUTROPHILS # (AUTO) 8.2 /CMM (1.8-8.9); NEUTROPHILS % (AUTO) 77.4 % (43.0-81.0); PLATELET COUNT (AUTO) 74 /CMM (150-450); WHITE BLOOD COUNT (AUTO) 10.6 K/uL (4.3-11.0)
[2020-09-09 06:02] LABS: CALCIUM, SERUM 6.2 mg/dL (8.5-10.1); CREATININE 0.7 mg/dL (0.6-1.3); MAGNESIUM 2.2 mg/dL (1.8-2.4); POTASSIUM 3.8 mmol/L (3.5-5.1)
--- NOTE | 2020-09-09 06:16 | NUR ---
FACILITY SECURITY OFFICER NOTES AWAKE & RESPONSIVE. NOT IN ANY DISTRESS. NO SOB NOTED. DENIES ANY PAIN OR DISCOMFORT AT THIS TIME. ON TELE SR @ 78 WITH IVF INFUSING WELL. AM CARE DONE. MONITORED ACCORDINGLY. CALL LIGHT WITHIN REACH. BED IN LOWEST POSITION. SR UP X 3 WITH BED ALARM ON FOR SAFETY. WILL ENDORSE TO NEXT SHIFT.
[2020-09-09] MEDS: IV D5/0.45 NACL 1,000 ML IV PRN ×2 (06:58→21:17)
--- NOTE | 2020-09-09 07:55 | NUR ---
FREIGHT SALES BROKER NOTES PATIENT IN BED ALERT TO SELF. NO ACUTE DISTRESS NOTED. BREATHING UNLABORED.NO FACIAL GRIMACING NOTED. IV ACCESS PATENT AND INTACT, NO BLEEDING . NO SWELLING NOTED. SAFETY MEASURES IN PLACE. CALL LIGHT WITHIN REACH. WILL CONTINUE TO MONITOR ACCORDINGLY
[2020-09-09 08:00] VITALS: BP 111/66
[2020-09-09] MEDS: IPRATROPIUM NEB FS 0.5 MG/2.5 ML AMPUL.NEB NEB SCH ×4 (08:05→19:37)
[2020-09-09] MEDS: ALBUTEROL FS 2.5 MG/3 ML VIAL.NEB NEB SCH ×4 (08:05→19:37)
[2020-09-09] MEDS: methylPREDNISolone SOD SUCC 125 MG/2ML VIAL IV SCH (08:51)
[2020-09-09] MEDS: ASPIRIN 81 MG TAB.CHEW PO SCH (08:51)
[2020-09-09] MEDS: ENSURE ENLIVE CHOC 237 ML CAN PO SCH ×2 (08:51→17:37)
[2020-09-09] MEDS: LORATADINE 10 MG TABLET PO SCH (08:52)
[2020-09-09] MEDS: HYDROCORTISONE 2.5% CREAM 28.4 GM TUBE TP SCH ×2 (08:53→17:39)
--- NOTE | 2020-09-09 09:13 | NUR ---
WOUND CARE CONSULT: PT PRESENTS WITH RESOLVING GENERALIZED BLOTCHY RED AREAS ON BODY, PRESENT ON ADMISSION PER NURSING STAFF. PT NOTED TO HAVE AREAS OF SKIN DISCOLORATION ON UPPER EXTREMITIES AND ALSO INCONTINENCE ASSOCIATED SKIN DAMAGE TO GLUTEAL CREASE. RECOMMENDATIONS MADE FOR SKIN PROTECTION. DISCUSSED WITH NURSING STAFF. PT IS ON [facility] AIR[facility] BED. IN AGREEMENT WITH PLAN OF CARE. Addendum: 09/09/20 at 0915 by CARLTON NELSON WNDNU Amended: Links added.
[2020-09-09 16:00] VITALS: BP 102/58
[2020-09-09] MEDS: VANCOMYCIN 1 GM in IV D5W 250 ML IV SCH (17:00)
[2020-09-09] MEDS: PANTOPRAZOLE 40 MG VIAL IV SCH (17:30)
--- NOTE | 2020-09-09 19:00 | NUR ---
FINANCIAL SERVICES OFFICER NOTES PATIENT IN BED ALERT TO SELF. NO ACUTE DISTRESS NOTED. BREATHING UNLABORED.NO FACIAL GRIMACING NOTED. IV ACCESS PATENT AND INTACT, NO BLEEDING . NO SWELLING NOTED. NEEDS ATTENDED AND ANTICIPATED. SAFETY MEASURES IN PLACE. CALL LIGHT WITHIN REACH. WILL ENDORSE TO NIGHT NURSE FOR CONTINUITY OF CARE.
--- NOTE | 2020-09-09 19:20 | NUR ---
AMBER MS opening notes Received Pt from morning nurse. Pt is resting in bed comfortably. Pt is alert and orientedX1. Respiration on 2 L NC. No SOB. No S/S of distress noted. IV site at R hand#22 is clean,intact and infusing well D5 1/2 NS@ 70 ml/hr. IV site at R forearm # 22 is clean, intact and SL. Safety precautions is maintained. Bed at low position, brakes locked, side rails upX2, hob elevated and call light is within reach. Will continue to monitor. Addendum: 09/10/20 at 0639 by CARLOS MADRIGAL RN Pt is on 3 L NC. No SOB. No S/S of distress noted.
--- NOTE | 2020-09-09 19:25 | NUR ---
RN notes Pt's having breathing treatment with Dhon, RT at the bedside. Will continue to monitor.
[2020-09-09 20:00] VITALS: BP 108/63
[2020-09-09] MEDS: CEFTRIAXONE 2 G in IV D5W 100 ML IV SCH (20:19)
--- NOTE | 2020-09-10 05:00 | NUR ---
RN notes Pt's sister Adelina called and asked about Pt's condition. Pt is stable and able to make needs known. No SOB. No S/S of distress noted. Pt's sister verbalize understanding and appreciate the info. Will continue to monitor.
[2020-09-10] MEDS: METOPROLOL TARTRATE 50 MG TABLET PO SCH ×4 (05:12→23:58)
[2020-09-10 06:32] LABS: BASOPHILS % (AUTO) 0.2 % (0.0-2.0); EOSINOPHILS % (AUTO) 8.1 % (0.0-6.0); HEMOGLOBIN 9.8 g/dL (11.5-14.8); LYMPHOCYTES # (AUTO) 0.7 /CMM (0.8-4.8); LYMPHOCYTES % (AUTO) 6.7 % (20.0-44.0); MEAN CORPUSCULAR HGB CONC 32 g/dl (31.0-36.0); MEAN CORPUSCULAR VOLUME 94 fL (82-100); MONOCYTES # (AUTO) 0.7 /CMM (0.1-1.30); MONOCYTES % (AUTO) 7.1 % (2.0-12.0); NEUTROPHILS # (AUTO) 7.6 /CMM (1.8-8.9); NEUTROPHILS % (AUTO) 77.9 % (43.0-81.0); PLATELET COUNT (AUTO) 86 /CMM (150-450); RED BLOOD CELL COUNT(AUTO) 3.28 MIL/uL (4.0-5.2); WHITE BLOOD COUNT (AUTO) 9.8 K/uL (4.3-11.0)
--- NOTE | 2020-09-10 06:35 | NUR ---
RN MS closing notes Pt is resting in bed comfortably. Pt is alert and orientedX1. Respiration on 3 L NC. No SOB. No S/S of distress noted. VS is stable. Afebrile. Routine meds were given as ordered. IV site at R hand#22 is clean,intact and infusing well D5 1/2 NS@ 70 ml/hr. IV site at R forearm # 22 is clean, intact and SL. Kept Pt clean, dry and comfortable. All needs met and attended. Safety precautions is maintained. Bed at low position, brakes locked, side rails upX2, hob elevated and call light is within reach. Will endorse to morning nurse for DICKSON.
[2020-09-10 06:46] LABS: HEMATOCRIT 31 % (33-45)
[2020-09-10 07:18] LABS: CALCIUM, SERUM 6.2 mg/dL (8.5-10.1); CREATININE 0.7 mg/dL (0.6-1.3); MAGNESIUM 2.1 mg/dL (1.8-2.4)
--- NOTE | 2020-09-10 07:35 | NUR ---
MS RN OPENING NOTES RECEIVED PATIENT IN BED, ASLEEP. PATIENT ON OXYGEN THERAPY AT 3 LPM VIA NASAL CANULA; BREATHING EVEN AND UNLABORED, NO SOB NOTED AT THIS TIME. NO S/S OF PAIN SUCH FACIAL GRIMACING, MOANING OR GUARDING. IV ACCESS AT RFA G # 22; SL AND R HAND G # 22 INFUSING D5 1/2 NS @70 MLS/HR. HOB ELEVATED AT 35%. SAFETY PRECAUTIONS IN PLACE; BED IN LOCKED POSITION AND LOCKED, RAILS UP X2, CALL LIGHT WITHIN REACH. WILL CONTINUE TO MONITOR PATIENT.
[2020-09-10] MEDS: IPRATROPIUM NEB FS 0.5 MG/2.5 ML AMPUL.NEB NEB SCH ×4 (07:50→19:46)
[2020-09-10] MEDS: ALBUTEROL FS 2.5 MG/3 ML VIAL.NEB NEB SCH ×4 (07:50→19:46)
[2020-09-10 08:00] VITALS: BP 110/76
[2020-09-10] MEDS: ENSURE ENLIVE CHOC 237 ML CAN PO SCH ×3 (08:27→16:50)
[2020-09-10] MEDS: HYDROCORTISONE 2.5% CREAM 28.4 GM TUBE TP SCH ×2 (08:27→16:51)
[2020-09-10] MEDS: ASPIRIN 81 MG TAB.CHEW PO SCH (08:29)
[2020-09-10] MEDS: methylPREDNISolone SOD SUCC 125 MG/2ML VIAL IV SCH (08:29)
[2020-09-10] MEDS: PANTOPRAZOLE 40 MG VIAL IV SCH ×2 (08:29→17:35)
[2020-09-10] MEDS: LORATADINE 10 MG TABLET PO SCH (08:29)
[2020-09-10] MEDS: VANCOMYCIN 1 GM in IV D5W 250 ML IV SCH (11:09)
[2020-09-10] MEDS: IV D5/0.45 NACL 1,000 ML IV PRN (15:30)
[2020-09-10 16:00] VITALS: BP 110/68
--- NOTE | 2020-09-10 18:46 | NUR ---
MS RN CLOSING NOTES PATIENT REMAINS IN BED, ASLEEP. DURING THE DAY AWAKE, A/O X2. PATIENT ON OXYGEN THERAPY AT 3 LPM VIA NASAL CANULA; BREATHING EVEN AND UNLABORED, NO SOB NOTED DURING THE DAY. NO COMPLAINS OF PAIN DURING THE DAY. IV ACCESS AT RFA G # 22; SL AND R HAND G # 22 INFUSING D5 1/2 NS @70 MLS/HR. HOB ELEVATED AT 35%. ALL NEEDS ATTENDED THROUGHOUT THE DAY. SAFETY PRECAUTIONS IN PLACE; BED IN LOCKED POSITION AND LOCKED, RAILS UP X2, CALL LIGHT WITHIN REACH. WILL ENDORSE TO DRILLER AND REAMER NURSE.
--- NOTE | 2020-09-10 19:25 | NUR ---
MS RN OPENING NOTES PATIENT RESTING IN BED A/OX1. ON O2 3LPM VIA N/C; TOLERATING WELL WITH NO SOB. NO S/S OF PAIN OR DISCOMFORT AT THIS TIME. RFA G#22 S/L PATENT AND INTACT. R HAND G#22 D5 1/2NS @ 70 ML/HR; PATENT AND INTACT. SAFETY PRECAUTIONS IN PLACE: BED IN LOWEST LOCKED POSITION; SIDE RAILS UPX2, CALLLIGHT WITHIN EASY REACH, BED ALARMS ON. PATIENT MEDICALLY STABLE AND WILL CONTINUE PLAN OF CARE.
[2020-09-10 20:00] VITALS: BP 115/69
[2020-09-10] MEDS ORDERED: HEPARIN SODIUM, PORCINE 5000 UNITS/1 ML VIAL SQ SCH (21:00)
[2020-09-10] MEDS: CEFTRIAXONE 2 G in IV D5W 100 ML IV SCH (21:09)
--- NOTE | 2020-09-10 21:39 | NUR ---
MS RN NOTES - HEPARIN NOTIFIED DR. HUGGINS PATIENT'S PLT - 86, HGB - 9.8, HCT - 31. ORDERS TO HOLD HEPARIN 5000 UNITS NOW; NEW ORDERS HEPARIN 5000UNITS Q12H. ORDERS CARRIED OUT.
[2020-09-11] MEDS: VANCOMYCIN 1 GM in IV D5W 250 ML IV SCH ×2 (04:17→22:17)
[2020-09-11] MEDS: METOPROLOL TARTRATE 50 MG TABLET PO SCH ×3 (05:37→18:00)
[2020-09-11 06:08] LABS: EOSINOPHILS % (AUTO) 11.6 % (0.0-6.0); HEMATOCRIT 32 % (33-45); LYMPHOCYTES # (AUTO) 0.7 /CMM (0.8-4.8); LYMPHOCYTES % (AUTO) 5.3 % (20.0-44.0); MEAN CORPUSCULAR HGB CONC 31 g/dl (31.0-36.0); MEAN CORPUSCULAR VOLUME 93 fL (82-100); MONOCYTES # (AUTO) 0.8 /CMM (0.1-1.30); MONOCYTES % (AUTO) 6.8 % (2.0-12.0); NEUTROPHILS # (AUTO) 9.5 /CMM (1.8-8.9); NEUTROPHILS % (AUTO) 76.3 % (43.0-81.0); PLATELET COUNT (AUTO) 105 /CMM (150-450); RED BLOOD CELL COUNT(AUTO) 3.42 MIL/uL (4.0-5.2); WHITE BLOOD COUNT (AUTO) 12.4 K/uL (4.3-11.0)
--- NOTE | 2020-09-11 06:35 | NUR ---
MS RN CLOSING NOTES PATIENT RESTING IN BED A/OX1. ON O2 3LPM VIA N/C; TOLERATING WELL WITH NO SOB. NO S/S OF PAIN OR DISCOMFORT AT THIS TIME. RFA G#22 S/L PATENT AND INTACT. R HAND G#22 D5 1/2NS @ 70 ML/HR; PATENT AND INTACT. SAFETY PRECAUTIONS IN PLACE: BED IN LOWEST LOCKED POSITION; SIDE RAILS UPX2, CALLLIGHT WITHIN EASY REACH, BED ALARMS ON. PATIENT MEDICALLY STABLE AND WILL ENDORSE PLAN OF CARE TO ONCOMING MORNING RN.
[2020-09-11 06:54] LABS: CALCIUM, SERUM 6.9 mg/dL (8.5-10.1); CREATININE 0.7 mg/dL (0.6-1.3); MAGNESIUM 2.3 mg/dL (1.8-2.4); POTASSIUM 3.9 mmol/L (3.5-5.1)
[2020-09-11] MEDS: IV D5/0.45 NACL 1,000 ML IV PRN (07:19)
--- NOTE | 2020-09-11 07:40 | NUR ---
RN OPENING NOTE PT IS RESTING IN BED ASLEEP. AROUSABLE TO LIGHT TOUCH. A/O X2 AND ABLE TO COMMUNICATE NEEDS TO NURSES. NO COMPLAINT OF PAIN OR NAUSEA. CURRENTLY ON 3L O2 DELIVERED VIA NC. ON BEDREST AND INCONTINENT. REDNESS PRESENT IN SCROTAL AREA. ON PUREE DIET. HL PRESENT ON R FA 22G AND R HAND 22G. SAFETY MEASURES IN PLACE. SIDE RAILS RAISED. BED LOWERED. CALL LIGHT WITHIN REACH. WILL CONTINUE TO MONITOR.
[2020-09-11] MEDS: IPRATROPIUM NEB FS 0.5 MG/2.5 ML AMPUL.NEB NEB SCH ×4 (07:41→20:09)
[2020-09-11] MEDS: ALBUTEROL FS 2.5 MG/3 ML VIAL.NEB NEB SCH ×4 (07:42→20:09)
[2020-09-11 08:51] VITALS: BP 116/79
[2020-09-11] MEDS ORDERED: HEPARIN SODIUM, PORCINE 5000 UNITS/1 ML VIAL SQ SCH (09:00)
[2020-09-11] MEDS: PANTOPRAZOLE 40 MG VIAL IV SCH ×2 (09:04→16:30)
[2020-09-11] MEDS: methylPREDNISolone SOD SUCC 125 MG/2ML VIAL IV SCH (09:04)
[2020-09-11] MEDS: ASPIRIN 81 MG TAB.CHEW PO SCH (09:05)
[2020-09-11] MEDS: LORATADINE 10 MG TABLET PO SCH (09:05)
[2020-09-11] MEDS: HYDROCORTISONE 2.5% CREAM 28.4 GM TUBE TP SCH ×2 (09:07→16:30)
[2020-09-11] MEDS: ENSURE ENLIVE CHOC 237 ML CAN PO SCH ×3 (09:08→16:30)
[2020-09-11 16:06] VITALS: BP 104/59
--- NOTE | 2020-09-11 18:27 | NUR ---
RN CLOSING NOTE PT IS RESTING IN BED AWAKE. A/O X2 AND ABLE TO COMMUNICATE SOME NEEDS TO NURSES. KYRGYZ SPEAKING. NO COMPLAINT OF PAIN OR NAUSEA. CURRENTLY ON 3L O2 DELIVERED VIA NC. ON BEDREST AND INCONTINENT. GENERALIZED REDNESS PRESENT. ON PUREE DIET. HL PRESENT ON R FA 22G AND R HAND 22G. ROUTINE MEDS GIVEN. SAFETY MEASURES IN PLACE. SIDE RAILS RAISED. BED LOWERED. CALL LIGHT WITHIN REACH. REPORT TO BE GIVEN TO NIGHT NURSE FOR DICKSON.
--- NOTE | 2020-09-11 19:32 | NUR ---
MS RN OPENING NOTES PATIENT RESTING IN BED A/OX1. ON O2 3LPM VIA N/C; TOLERATING WELL WITH NO SOB. NO S/S OF PAIN OR DISCOMFORT AT THIS TIME. RFA G#22 S/L PATENT AND INTACT. R HAND G#22 D5 1/2NS @ 70 ML/HR; PATENT AND INTACT. SAFETY PRECAUTIONS IN PLACE: BED IN LOWEST LOCKED POSITION; SIDE RAILS UPX2, CALL LIGHT WITHIN EASY REACH, BED ALARMS ON. PATIENT MEDICALLY STABLE AND WILL CONTINUE PLAN OF CARE.
[2020-09-11 20:00] VITALS: BP 105/74
[2020-09-11] MEDS: CEFTRIAXONE 2 G in IV D5W 100 ML IV SCH (21:10)
[2020-09-11] MEDS: HEPARIN SODIUM, PORCINE 5000 UNITS/1 ML VIAL SQ SCH (21:11)
[2020-09-12] MEDS: METOPROLOL TARTRATE 50 MG TABLET PO SCH ×5 (00:44→22:57)
[2020-09-12] MEDS: IV D5/0.45 NACL 1,000 ML IV PRN ×2 (05:11→19:23)
[2020-09-12] MEDS: HEPARIN SODIUM, PORCINE 5000 UNITS/1 ML VIAL SQ SCH ×3 (05:19→22:29)
[2020-09-12 06:24] LABS: BASOPHILS % (AUTO) 0.1 % (0.0-2.0); EOSINOPHILS % (AUTO) 13.8 % (0.0-6.0); HEMATOCRIT 33 % (33-45); HEMOGLOBIN 10.4 g/dL (11.5-14.8); LYMPHOCYTES # (AUTO) 0.7 /CMM (0.8-4.8); LYMPHOCYTES % (AUTO) 5.8 % (20.0-44.0); MEAN CORPUSCULAR HGB CONC 31 g/dl (31.0-36.0); MEAN CORPUSCULAR VOLUME 92 fL (82-100); MONOCYTES % (AUTO) 8.5 % (2.0-12.0); NEUTROPHILS # (AUTO) 8.2 /CMM (1.8-8.9); NEUTROPHILS % (AUTO) 71.8 % (43.0-81.0); PLATELET COUNT (AUTO) 96 /CMM (150-450); RED BLOOD CELL COUNT(AUTO) 3.61 MIL/uL (4.0-5.2); WHITE BLOOD COUNT (AUTO) 11.5 K/uL (4.3-11.0)
[2020-09-12 06:35] LABS: CALCIUM, SERUM 7.5 mg/dL (8.5-10.1); CREATININE 0.7 mg/dL (0.6-1.3); MAGNESIUM 2.2 mg/dL (1.8-2.4); POTASSIUM 3.9 mmol/L (3.5-5.1)
--- NOTE | 2020-09-12 06:38 | NUR ---
MS RN CLOSING NOTES PATIENT RESTING IN BED A/OX2. ON O2 3LPM VIA N/C; TOLERATING WELL WITH NO SOB. NO S/S OF PAIN OR DISCOMFORT AT THIS TIME. RFA G#22 S/L PATENT AND INTACT. R HAND G#22 D5 1/2NS @ 70 ML/HR; PATENT AND INTACT. SAFETY PRECAUTIONS IN PLACE: BED IN LOWEST LOCKED POSITION; SIDE RAILS UPX2, CALL LIGHT WITHIN EASY REACH, BED ALARMS ON. PATIENT MEDICALLY STABLE AND WILL ENDORSE PLAN OF CARE TO ONCOMING MORNING RN.
--- NOTE | 2020-09-12 07:00 | NUR ---
MS RN OPENING NOTES RECEIVED PT AWAKE IN BED AT THIS TIME. A/O X1-2, NO SOB NOTED, BREATHING EVEN AND UNLABORED. PT NOTES 3LPM O2 VIA NC SATURATING AT 98%. NO C/O PAIN AT THIS TIME. NO S/O ANY APPARENT DISTRESS NOTED. IV ACCESS NOTED IN RFA G#22 AND RIGHT HAND G#22, BOTH INTACT PATENT AND FLUSHING WELL. ASPIRATION AND SAFETY PRECAUTIONS IN PLACED AND MAINTAINED AT ALL TIMES. BED IN LOWEST LOCKED POSITION, HOB ELEVATED, SIDE RAILS UPX2, CALL LIGHT AND TABLE WITHIN REACH. WILL CONTINUE TO MONITOR
[2020-09-12 08:14] VITALS: BP 117/68
[2020-09-12] MEDS: IPRATROPIUM NEB FS 0.5 MG/2.5 ML AMPUL.NEB NEB SCH ×4 (08:17→20:26)
[2020-09-12] MEDS: ALBUTEROL FS 2.5 MG/3 ML VIAL.NEB NEB SCH ×4 (08:18→20:26)
[2020-09-12] MEDS: LORATADINE 10 MG TABLET PO SCH (09:22)
[2020-09-12] MEDS: methylPREDNISolone SOD SUCC 125 MG/2ML VIAL IV SCH (09:23)
[2020-09-12] MEDS: ASPIRIN 81 MG TAB.CHEW PO SCH (09:23)
[2020-09-12] MEDS: PANTOPRAZOLE 40 MG VIAL IV SCH (09:26)
[2020-09-12] MEDS: HYDROCORTISONE 2.5% CREAM 28.4 GM TUBE TP SCH ×2 (09:27→16:23)
[2020-09-12] MEDS: ENSURE ENLIVE CHOC 237 ML CAN PO SCH ×3 (09:27→16:22)
--- NOTE | 2020-09-12 09:30 | NUR ---
RECEIVED CRITICAL LAB VALUE FOR CK-MB 30.3. LAB VALUE REPORTED BY MARLON FROM [facility]. READBACK PROVIDED. FABIENNE, CHARGE NURSE AND DR. RAHMAN MADE AWARE. AWAITING ORDERS. WILL CONTINUE TO MONITOR.
[2020-09-12 10:25] LABS: EOSINOPHILS % (MANUAL) 14 % (0-4); LYMPHOCYTES % (MANUAL) 3 % (16-48); MONOCYTES % (MANUAL) 5 % (0-11.0); NEUTROPHILS % (MANUAL) 78 (42-76)
--- NOTE | 2020-09-12 14:40 | NUR ---
SALVADOR ([phone]), PT'S SISTER REQUESTED TO SPEAK WITH HOSPITALIST. LANCE SAUER MADE AWARE. WILL CONTINUE WILL PLAN OF CARE
[2020-09-12 15:55] VITALS: BP 110/67
[2020-09-12] MEDS: VANCOMYCIN 1 GM in IV D5W 250 ML IV SCH ×2 (16:22→18:05)
--- NOTE | 2020-09-12 18:42 | NUR ---
RN CLOSING NOTES PT AWAKE IN BED AT THIS TIME. PT REMAINED STABLE THROUGHOUT SHIFT. ALL CARE, NEEDS, MEDICATIONS AND TREATMENT ADMINISTERED ANTICIPATED PER ORDER. PT KEPT CLEAN AND DRY. ZGUARD AND MEPILEX APPLIED TO SACRAL. PT REPOSITIONED Q2HR AND PRN. SAFETY AND ASPIRATION PRECAUTIONS MAINTAINED AT ALL TIMES. BED IN LOWEST LOCKED POSITION, HOB ELEVATED, SIDE RAILS UPX2, CALL LIGHT AND TABLE WITHIN REACH. WILL ENDORSE TO HAT MODEL NURSE FOR DICKSON
[2020-09-12 20:00] VITALS: BP 113/68
[2020-09-12] MEDS: CEFTRIAXONE 2 G in IV D5W 100 ML IV SCH (22:31)
[2020-09-13] MEDS: METOPROLOL TARTRATE 50 MG TABLET PO SCH ×4 (05:03→23:50)
[2020-09-13] MEDS: HEPARIN SODIUM, PORCINE 5000 UNITS/1 ML VIAL SQ SCH ×2 (05:03→13:07)
--- NOTE | 2020-09-13 07:05 | NUR ---
MS RN OPENING NOTES RECEIVED PT AWAKE IN BED AT THIS TIME. A/O X1-2, NO SOB NOTED, RESPIRATIONS EVEN AND UNLABORED. PT ON 8L VIA NRB SATURATING AT 98%. NO C/O PAIN AT THIS TIME. NO SOB NOTED. NO S/S OF RESPIRATORY DISTRESS NOTED. IV ACCESS NOTED IN RFA #22G AND RIGHT HAND #22G, BOTH INTACT, PATENT, AND FLUSHING WELL. ASPIRATION AND SAFETY PRECAUTIONS IN PLACE AND MAINTAINED AT ALL TIMES. BED IN LOWEST LOCKED POSITION, HOB ELEVATED, SIDE RAILS UP X2, CALL LIGHT AND TABLE WITHIN REACH. WILL CONTINUE TO MONITOR. Addendum: 09/13/20 at 1435 by KAVITA LOPEZ RN MS RN OPENING NOTES RECEIVED PT AWAKE IN BED AT THIS TIME. A/O X1-2, NO SOB NOTED, RESPIRATIONS EVEN AND UNLABORED. PT ON 2L VIA NC SATURATING AT 98%. NO C/O PAIN AT THIS TIME. NO SOB NOTED. NO S/S OF RESPIRATORY DISTRESS NOTED. IV ACCESS NOTED IN RFA #22G AND RIGHT HAND #22G, BOTH INTACT, PATENT, AND FLUSHING WELL. ASPIRATION AND SAFETY PRECAUTIONS IN PLACE AND MAINTAINED AT ALL TIMES. BED IN LOWEST LOCKED POSITION, HOB ELEVATED, SIDE RAILS UP X2, CALL LIGHT AND TABLE WITHIN REACH. WILL CONTINUE TO MONITOR.
[2020-09-13] MEDS: ALBUTEROL FS 2.5 MG/3 ML VIAL.NEB NEB SCH ×4 (07:50→20:12)
[2020-09-13] MEDS: IPRATROPIUM NEB FS 0.5 MG/2.5 ML AMPUL.NEB NEB SCH ×4 (07:50→20:12)
[2020-09-13 08:00] VITALS: BP 132/74
[2020-09-13] MEDS: ASPIRIN 81 MG TAB.CHEW PO SCH (08:45)
[2020-09-13] MEDS: methylPREDNISolone SOD SUCC 125 MG/2ML VIAL IV SCH (08:45)
[2020-09-13] MEDS: PANTOPRAZOLE 40 MG VIAL IV SCH (08:45)
[2020-09-13] MEDS: LORATADINE 10 MG TABLET PO SCH (08:45)
[2020-09-13] MEDS: ENSURE ENLIVE CHOC 237 ML CAN PO SCH ×3 (08:46→16:54)
[2020-09-13] MEDS: HYDROCORTISONE 2.5% CREAM 28.4 GM TUBE TP SCH ×2 (08:56→16:53)
[2020-09-13] MEDS: VANCOMYCIN 1 GM in IV D5W 250 ML IV SCH (09:00)
[2020-09-13 09:19] LABS: BASOPHILS # (AUTO) 0.1 /CMM (0.0-0.2); BASOPHILS % (AUTO) 0.5 % (0.0-2.0); EOSINOPHILS % (AUTO) 16.8 % (0.0-6.0); HEMATOCRIT 34 % (33-45); HEMOGLOBIN 10.5 g/dL (11.5-14.8); LYMPHOCYTES # (AUTO) 1.2 /CMM (0.8-4.8); LYMPHOCYTES % (AUTO) 6.8 % (20.0-44.0); MEAN CORPUSCULAR HGB CONC 31 g/dl (31.0-36.0); MEAN CORPUSCULAR VOLUME 92 fL (82-100); MONOCYTES # (AUTO) 1.2 /CMM (0.1-1.30); MONOCYTES % (AUTO) 7.2 % (2.0-12.0); NEUTROPHILS # (AUTO) 11.9 /CMM (1.8-8.9); NEUTROPHILS % (AUTO) 68.7 % (43.0-81.0); PLATELET COUNT (AUTO) 122 /CMM (150-450); RED BLOOD CELL COUNT(AUTO) 3.66 MIL/uL (4.0-5.2); WHITE BLOOD COUNT (AUTO) 17.2 K/uL (4.3-11.0)
[2020-09-13 09:35] LABS: CALCIUM, SERUM 7.3 mg/dL (8.5-10.1); CREATININE 0.8 mg/dL (0.6-1.3); MAGNESIUM 2.1 mg/dL (1.8-2.4); POTASSIUM 3.8 mmol/L (3.5-5.1)
[2020-09-13] MEDS: IV D5/0.45 NACL 1,000 ML IV PRN (10:40)
[2020-09-13 16:00] VITALS: BP 103/57
[2020-09-13] MEDS ORDERED: HEPARIN INFUSION/D5W 500 ML IV PRN (17:30)
--- NOTE | 2020-09-13 19:00 | NUR ---
RECEIVED IN BED ALERT TO ACTIVITY AROUND HERE . WILL SMILE WHEN SPOKEN TO. NOTED SHE IS CONFUSED...TAKING OFF HER NASAL CANULA AND PUTTING IT IN HER MOUTH. NOT SPEAKING CALLED LAB TO FIND OUT THE LATEST PTT AND THE TEST IS PENDING, PT TO START HEPARIN GTT
--- NOTE | 2020-09-13 19:10 | NUR ---
MS RN CLOSING NOTES PT AWAKE AND RESTING COMFORTABLY IN BED AT THIS TIME. PT REMAINED STABLE THROUGHOUT SHIFT. ALL CARE, NEEDS, MEDICATIONS AND TREATMENT ADMINISTERED PER ORDER. PT KEPT CLEAN AND DRY. ZGUARD AND MEPILEX APPLIED TO SACRAL. PT REPOSITIONED Q2HR AND PRN. SAFETY AND ASPIRATION PRECAUTIONS MAINTAINED AT ALL TIMES. BED IN LOWEST LOCKED POSITION, HOB ELEVATED, SIDE RAILS UP X2, CALL LIGHT AND TABLE WITHIN REACH. WILL ENDORSE TO CAR FRAMER NURSE FOR CONTINUITY OF CARE.
[2020-09-13 20:22] VITALS: BP 121/66
[2020-09-14 00:15] VITALS: BP 121/66
[2020-09-14] MEDS: IV D5/0.45 NACL 1,000 ML IV PRN ×2 (01:37→19:57)
[2020-09-14 03:30] LABS: BASOPHILS % (AUTO) 0.2 % (0.0-2.0); EOSINOPHILS % (AUTO) 6.5 % (0.0-6.0); HEMATOCRIT 30 % (33-45); HEMOGLOBIN 9.6 g/dL (11.5-14.8); LYMPHOCYTES # (AUTO) 0.7 /CMM (0.8-4.8); MEAN CORPUSCULAR HGB CONC 32 g/dl (31.0-36.0); MEAN CORPUSCULAR VOLUME 91 fL (82-100); MONOCYTES # (AUTO) 0.9 /CMM (0.1-1.30); MONOCYTES % (AUTO) 8.3 % (2.0-12.0); NEUTROPHILS # (AUTO) 8.6 /CMM (1.8-8.9); PLATELET COUNT (AUTO) 102 /CMM (150-450); RED BLOOD CELL COUNT(AUTO) 3.33 MIL/uL (4.0-5.2); WHITE BLOOD COUNT (AUTO) 10.9 K/uL (4.3-11.0)
[2020-09-14 03:43] LABS: ALBUMIN 1.9 g/dL (3.4-5.0); BILIRUBIN,TOTAL 0.3 mg/dL (0.2-1.0); CALCIUM, SERUM 7.2 mg/dL (8.5-10.1); CREATININE 0.8 mg/dL (0.6-1.3); POTASSIUM 4.1 mmol/L (3.5-5.1); TOTAL PROTEIN, SERUM 5.3 g/dL (6.4-8.2)
--- NOTE | 2020-09-14 04:39 | NUR ---
LAB CALLED AT 02:30 AND REMINDED I HAVE A PTT LAB DRAW D/T PATIENT ON HEPARIN GTT LAB HERE ABOUT 0:15 TO DRAW THE ORDERED PTT. LEFT ARM BEING USED D/T THE HEPARIN IS INFUSING THE RIGHT ARM NOTED AT 04:20 THE LAB IS HERE AGAIN DRAWING THE BLOOD FOR THE ptt WHEN QUESTIONED "WHY" HE MENTIONED THE PTT WAS HIGH AND A REDRAW WAS IN ORDER...
[2020-09-14] MEDS: METOPROLOL TARTRATE 50 MG TABLET PO SCH ×4 (05:58→17:02)
--- NOTE | 2020-09-14 06:39 | NUR ---
PATIENT ON LOPRSSOR 25MG PO Q 6 HOURS LAST NIGHT MIDNIGHT DOSE GIVEN THIS 0600 NOTED NO 0600 DOSE TO BE GIVEN IN THE PHARMACY SHEET IN THE COMPUTER STATING NEXT DOSE IS NOON 31 0600 DOSE GIVEN WILL EXPLAIN PROBLEM TO THE AM SHIFT TO GIVE THE NOON DOSE
--- NOTE | 2020-09-14 07:30 | NUR ---
PT RECEIVED RESTING COMFORTABLY IN BED WITH EYES CLOSED. NO S/S OR C/O PAIN OR DISTRESS NOTED. SIDE RAILS UP X2, CALL LIGHT LEFT WITHIN REACH. WILL CONTINUE PLAN OF CARE.
[2020-09-14] MEDS: IPRATROPIUM NEB FS 0.5 MG/2.5 ML AMPUL.NEB NEB SCH ×4 (07:51→19:04)
[2020-09-14] MEDS: ALBUTEROL FS 2.5 MG/3 ML VIAL.NEB NEB SCH ×4 (07:52→19:04)
[2020-09-14 08:00] VITALS: BP 135/71
[2020-09-14] MEDS: ASPIRIN 81 MG TAB.CHEW PO SCH (08:51)
[2020-09-14] MEDS: LORATADINE 10 MG TABLET PO SCH (08:52)
[2020-09-14] MEDS: methylPREDNISolone SOD SUCC 125 MG/2ML VIAL IV SCH (08:52)
[2020-09-14] MEDS: PANTOPRAZOLE 40 MG VIAL IV SCH (08:52)
[2020-09-14] MEDS: ENSURE ENLIVE CHOC 237 ML CAN PO SCH ×3 (08:52→17:00)
[2020-09-14] MEDS: HYDROCORTISONE 2.5% CREAM 28.4 GM TUBE TP SCH ×2 (08:53→17:00)
[2020-09-14 09:00] VITALS: BP 135/71
[2020-09-14 16:00] VITALS: BP 128/76
--- NOTE | 2020-09-14 18:05 | NUR ---
RN CLOSING NOTES PT IS RESTING IN BED COMFORTABLY. PT A/OX2. PT ON NASAL CANNULA 3L. NO SOB NOTED AT THE MOMENT. NO S/S OF DISTRESS. VITAL SIGNS STABLE. ROUTINE MEDS WERE GIVEN ORDERED. IV ON RIGHT FOREARM #20 G PATENT AND INTACT INFUSING D5 1/2 NS@ 70 ml/hr. ALL NEEDS MET AND ATTENDED. SAFETY PRECAUTIONS IN PLACE: BED IN LOWEST POSITION, BRAKES LOCKED, SIDE RAILS UP X2, HOB ELEVATED AND CALL LIGHT WITHIN REACH. WILL ENDORSE TO NIGHT NURSE FOR DICKSON.
--- NOTE | 2020-09-14 19:30 | NUR ---
MS RN NOTE PATIENT RECEIVED IN BED, EYES CLOSED, EASILY AROUSABLE. PATIENT A/O X 2. PATIENT CURRENTLY ON 3/L OF OXYGEN. NO S/S OF RESPIRATORY DISTRESS, BREATHING EVEN AND UNLABORED. NO C/O PAIN/DISCOMFORT. IV SITE PATENT. SAFETY PRECAUTIONS IN PLACE: SIDE RAILS UP, BED IN LOWEST POSITION. BED LOCKED, HOB ELEVATED. WILL CONTINUE TO MONITOR.
[2020-09-14 20:00] VITALS: BP 114/69
[2020-09-14 22:00] VITALS: BP_SYST 107; BP_SYST 114; BP_DIAS 61; BP_DIAS 69
[2020-09-15] MEDS: METOPROLOL TARTRATE 50 MG TABLET PO SCH ×4 (00:05→17:46)
[2020-09-15 00:58] VITALS: BP 130/67
[2020-09-15 04:00] VITALS: BP 127/80
--- NOTE | 2020-09-15 06:33 | NUR ---
MS RN CLOSING NOTE PATIENT RESTING COMFORTABLY IN BED, NO S/S OF RESPIRATORY DISTRESS, EASILY AROUSABLE. A/O X 2-3. IV FLUIDS INFUSING WELL ON THE RFA. SAFETY PRECAUTIONS MAINTAINED THROUGHOUT THE SHIFT. ROUTINE MEDS GIVEN. WOUND CARE PROVIDED ON THE SACRAL AREA. PATIENT'S SISTER, SALVADOR, UPDATED ON PATIENT'S SITUATION. ATTENDED ALL PATIENT NEEDS. WILL ENDORSE TO PUBLIC HEALTH SANITARIAN NURSE FOR DICKSON.
[2020-09-15] MEDS: ALBUTEROL FS 2.5 MG/3 ML VIAL.NEB NEB SCH ×4 (07:30→19:34)
[2020-09-15] MEDS: IPRATROPIUM NEB FS 0.5 MG/2.5 ML AMPUL.NEB NEB SCH ×4 (07:30→19:34)
--- NOTE | 2020-09-15 07:56 | NUR ---
MS RN OPENING NOTE PATIENT IS IN BED RESTING, PATIENT IS IN NO ACUTE DISTRESS. NO SOB NOTED. PATIENT IS 3L OXYGEN NASAL CANNULA. MITOCHONDRIAL DISORDERS COUNSELOR ENDORSED REPORT PATIENT WAS ON HEPARIN DRIP, ON 09/14, PATIENTS PTT WAS 90.4 HEPARIN WAS PLACED ON HOLD. SAFETY PRECAUTIONS ARE ON. BED IN THE LOWEST POSITION WITH SIDE RAILS UP, CALL LIGHT WITHIN REACH, WILL CONTINUE TO MONITOR CLOSELY THROUGH OUT THE SHIFT.
[2020-09-15 08:00] VITALS: BP 127/78
[2020-09-15] MEDS: ASPIRIN 81 MG TAB.CHEW PO SCH (08:56)
[2020-09-15] MEDS: methylPREDNISolone SOD SUCC 125 MG/2ML VIAL IV SCH (08:56)
[2020-09-15] MEDS: HYDROCORTISONE 2.5% CREAM 28.4 GM TUBE TP SCH ×2 (08:56→17:45)
[2020-09-15] MEDS: PANTOPRAZOLE 40 MG TABLET.DR PO SCH (08:56)
[2020-09-15] MEDS: ENSURE ENLIVE CHOC 237 ML CAN PO SCH ×3 (08:56→17:44)
[2020-09-15] MEDS: LORATADINE 10 MG TABLET PO SCH (08:56)
[2020-09-15] MEDS: IV D5/0.45 NACL 1,000 ML IV PRN (10:14)
[2020-09-15] MEDS: DOXYCYCLINE HYCLATE (100 MG) 100 MG TABLET PO SCH ×2 (10:57→20:51)
[2020-09-15] MEDS ORDERED: IPRATROPIUM NEB FS 0.5 MG/2.5 ML AMPUL.NEB NEB PRN (13:00)
[2020-09-15] MEDS ORDERED: ALBUTEROL HALF STRENGTH 1.25 MG/3 ML VIAL.NEB NEB PRN (13:00)
[2020-09-15 13:03] LABS: BASOPHILS % (AUTO) 0.2 % (0.0-2.0); EOSINOPHILS % (AUTO) 14.1 % (0.0-6.0); HEMATOCRIT 33 % (33-45); HEMOGLOBIN 10.1 g/dL (11.5-14.8); LYMPHOCYTES # (AUTO) 1.3 /CMM (0.8-4.8); LYMPHOCYTES % (AUTO) 6.1 % (20.0-44.0); MEAN CORPUSCULAR HGB CONC 31 g/dl (31.0-36.0); MEAN CORPUSCULAR VOLUME 93 fL (82-100); MONOCYTES # (AUTO) 1.3 /CMM (0.1-1.30); MONOCYTES % (AUTO) 6.1 % (2.0-12.0); NEUTROPHILS # (AUTO) 15.2 /CMM (1.8-8.9); NEUTROPHILS % (AUTO) 73.5 % (43.0-81.0); PLATELET COUNT (AUTO) 160 /CMM (150-450); RED BLOOD CELL COUNT(AUTO) 3.56 MIL/uL (4.0-5.2); WHITE BLOOD COUNT (AUTO) 20.7 K/uL (4.3-11.0)
[2020-09-15 16:00] VITALS: BP 130/80
--- NOTE | 2020-09-15 17:58 | NUR ---
MS RN NOTE PATIENTS PTT IS 90.4 FROM 09/14, HEPARIN DRIP IS ON HOLD PER DR. ABBOTT. ORDERED REPEAT BLOOD WORK PT/INR AND PTT. AWAITING RESULTS.
--- NOTE | 2020-09-15 19:15 | NUR ---
RECEIVED PATIENT IN BED, AWAKE, ANSWERS FEW WORDS WHEN ASKED. PATIENT IS ATTENTIVE. CALL LIGHT WITHIN REACH. BED ALARM ON. BED IN LOWEST AND LOCKED POSITION. NO S/S OF DISTRESS NOTED. HOB ELEVATED AT 35 DEGREES.
[2020-09-15 20:00] VITALS: BP 114/59
--- NOTE | 2020-09-15 20:03 | NUR ---
CALLED THE LAB AND TALKED TO JESS JERONIMO: THE aPTT DRAW STAT.
--- NOTE | 2020-09-15 20:05 | NUR ---
MS RN CLOSING NOTE PATIENT IS IN BED RESTING, PATIENT IS IN NO ACUTE DISTRESS. NO SOB NOTED. PATIENT IS 3L OXYGEN NASAL CANNULA. CIVIL ENGINEER IN TRAINING ENDORSED REPORT PATIENT WAS ON HEPARIN DRIP, ON 09/14, PATIENTS PTT WAS 90.4 HEPARIN WAS PLACED ON HOLD. PHARMACY DC HEPARIN. DR. GIRALDO CONTINUED PATIENT ON HEPARIN, PLACED AN ORDER FOR STAT PT/INR AND PTT. AWAITING FOR THE RESULTS TO CONTINUE HEPARIN. SAFETY PRECAUTIONS ARE ON. BED IN THE LOWEST POSITION WITH SIDE RAILS UP, CALL LIGHT WITHIN REACH, ENDORSE PATIENT TO CIVIL ENGINEER IN TRAINING NURSE FOR DICKSON.
[2020-09-15] MEDS: HEPARIN INFUSION/D5W 500 ML IV PRN (23:00)
[2020-09-16] MEDS: METOPROLOL TARTRATE 50 MG TABLET PO SCH ×4 (00:19→17:10)
[2020-09-16 05:53] LABS: BASOPHILS % (AUTO) 0.3 % (0.0-2.0); EOSINOPHILS % (AUTO) 4.9 % (0.0-6.0); HEMATOCRIT 33 % (33-45); HEMOGLOBIN 10.1 g/dL (11.5-14.8); LYMPHOCYTES # (AUTO) 0.7 /CMM (0.8-4.8); LYMPHOCYTES % (AUTO) 4.8 % (20.0-44.0); MEAN CORPUSCULAR HGB CONC 31 g/dl (31.0-36.0); MEAN CORPUSCULAR VOLUME 94 fL (82-100); MONOCYTES % (AUTO) 6.7 % (2.0-12.0); NEUTROPHILS # (AUTO) 11.9 /CMM (1.8-8.9); NEUTROPHILS % (AUTO) 83.3 % (43.0-81.0); PLATELET COUNT (AUTO) 114 /CMM (150-450); RED BLOOD CELL COUNT(AUTO) 3.55 MIL/uL (4.0-5.2); WHITE BLOOD COUNT (AUTO) 14.3 K/uL (4.3-11.0)
[2020-09-16 06:06] VITALS: BP 132/81
[2020-09-16 06:10] LABS: CALCIUM, SERUM 7.9 mg/dL (8.5-10.1); CREATININE 0.7 mg/dL (0.6-1.3); POTASSIUM 4.2 mmol/L (3.5-5.1)
[2020-09-16] MEDS: IV D5/0.45 NACL 1,000 ML IV PRN ×2 (06:10→16:38)
--- NOTE | 2020-09-16 06:30 | NUR ---
RECEIVED A CALL FROM LAB FOR [id number], HELD HEPARIN FOR ONE HOUR PER PROTOCOL AND WILL DECREASE DRIP BY 3UNITS AFTER AN HOUR, WILL ENDORSE TO THE NEXT SHIFT RN. NEXT PTT DRAW WILL BE AT 1230. Addendum: 09/16/20 at 0650 by LETICIA DEVINE RN DECREASE BY 3 UNITS/KG/H.
--- NOTE | 2020-09-16 07:42 | NUR ---
MS RN OPENING NOTES PATIENT IS IN BED RESTING, PATIENT IS IN NO ACUTE DISTRESS. NO SOB NOTED. RESOURCE PROGRAM TEACHER ENDORSED REPORT PATIENT WAS ON HEPARIN DRIP, PATIENTS PTT WAS 123. HEPARIN WAS PLACED ON HOLD FOR ONE HOUR PER REPORT. RESTARTED @ 0730 @ 1100 UNITS PER PROTOCOL. SAFETY PRECAUTIONS ARE ON. BED IN THE LOWEST POSITION WITH SIDE RAILS UP, CALL LIGHT WITHIN REACH, WILL CONTINUE TO MONITOR CLOSELY THROUGH OUT THE SHIFT. WILL HAVE PTT REDRAW @ 1230.
[2020-09-16] MEDS: ALBUTEROL FS 2.5 MG/3 ML VIAL.NEB NEB SCH ×4 (07:54→19:58)
[2020-09-16] MEDS: IPRATROPIUM NEB FS 0.5 MG/2.5 ML AMPUL.NEB NEB SCH ×4 (07:54→19:58)
[2020-09-16 08:00] VITALS: BP 128/79
[2020-09-16] MEDS: LORATADINE 10 MG TABLET PO SCH (08:27)
[2020-09-16] MEDS: PANTOPRAZOLE 40 MG TABLET.DR PO SCH (08:27)
[2020-09-16] MEDS: predniSONE 20 MG TABLET PO SCH (08:27)
[2020-09-16] MEDS: ASPIRIN 81 MG TAB.CHEW PO SCH (08:27)
[2020-09-16] MEDS: DOXYCYCLINE HYCLATE (100 MG) 100 MG TABLET PO SCH ×2 (08:27→21:08)
[2020-09-16] MEDS: ENSURE ENLIVE CHOC 237 ML CAN PO SCH ×3 (08:44→16:22)
[2020-09-16] MEDS: HYDROCORTISONE 2.5% CREAM 28.4 GM TUBE TP SCH ×2 (08:44→16:45)
--- NOTE | 2020-09-16 12:25 | NUR ---
RN NOTES RECEIVED CALL FROM SALVADOR, PATIENT'S SISTER, AND UPDATED ABOUT PATIENT'S CURRENT STATUS AND CONDITION.
[2020-09-16] MEDS ORDERED: HYDROCODONE/APAP 5/325MG TABLET PO PRN (12:30)
--- NOTE | 2020-09-16 12:32 | NUR ---
RN NOTES BACKUP SAWYER SEEN PATIENT FOR BLOOD DRAW FOR SCHEDULED PTT.
--- NOTE | 2020-09-16 12:38 | NUR ---
RN NOTES PATIENT WAS SEEN BY GRETCEHN EDGAR NP, TODAY W/ ORDER FOR NORCO 5-325 Q4H PRN FOR PAIN PATIENT COMPLAINT OF BACK DISCOMFORT. PATIENT WAS ASSESSED AND ASKED IF SHE'S IN PAIN; PATIENT DID NOT COMPLAIN OF PAIN AT THIS TIME AND WAS PREVIOUSLY REPOSITIONED FOR COMFORT. ASKED IF SHE WANTS ANY MEDICATION FOR PAIN BUT PATIENT REFUSED AT THIS TIME. INSTRUCTED TO USE CALL LIGHT FOR ASSISTANCE AND TO INFORM STAFF IF SHE WOULD LIKE ANY MEDICATION OF EXPERIENCING PAIN. WILL CONTINUE TO MONITOR
--- NOTE | 2020-09-16 13:10 | NUR ---
RN NOTES RECEIVED PTT RESULT OF 54.3; PER HEPARIN DOSING PROTOCOL, CONTINUE SAME DOSE OF 1100UNITS/KG/HR (22ML/HR). NO S/SX OF BLEEDING AT THIS TIME. WILL CONTINUE MONITOR.
[2020-09-16 16:02] VITALS: BP 104/63
--- NOTE | 2020-09-16 18:52 | NUR ---
MS RN CLOSING NOTES PATIENT IS IN BED RESTING, PATIENT IS IN NO ACUTE DISTRESS. NO SOB NOTED. PATIENT IS BREATHING EVEN AND UNLABORED @ 2 LPM NASAL CANNUAL. IVF @ 70 ML/HR D5 1/2 NS RIGHT HAND. PATIENTS PTT WAS 5.4 WHICH SHOWED TO CONTINUE RATE. HEPARIN IS AT 1100 UNITS PER PROTOCOL ON RIGHT FOREARM. NEXT HEPARIN WILL BE @ 0600 AM PER PROTOCOL. PATIENT COMPLAINED OF BACK PAIN DURING SHIFT REPOSITIONING HELPED, ORDERED NORCO 5/325MG PRN FOR PAIN, PATIENT DID NOT WANT MEDICATION AT THAT TIME. NEEDS MET THROUGHOUT SHIFT. SAFETY PRECAUTIONS ARE ON. BED IN THE LOWEST POSITION WITH SIDE RAILS UP, CALL LIGHT WITHIN REACH.
--- NOTE | 2020-09-16 19:30 | NUR ---
MS/RN NOTES RECEIVED PATIENT IN BED RESTING. PATIENT IS ALERT AND ORIENTED X 2-3. PATIENT BREATHING IS EVEN AND UNLABORED. NO SOB OR RESPIRATORY DISTRESS NOTED. PATIENT PLACED IN COMFORTABLE POSITION. PATIENT RUNNING HEPARIN DRIP AT 11OO UNITS/KG/HR ( 22ML/HR) PER PROTOCOL. SAFETY MEASURES ARE IN PLACE, BED IS LOCKED AND PLACED IN THE LOW POSITION, SIDE RAILS UP X 3, CALL LIGHT IS WITHIN REACH. WILL CONTINUE WITH PATIENT PLAN OF CARE.
[2020-09-16 20:00] VITALS: BP 121/66
[2020-09-16] MEDS: HEPARIN INFUSION/D5W 500 ML IV PRN (22:10)
--- NOTE | 2020-09-16 22:12 | NUR ---
MS/RN NOTES HEPARIN DRIP PER PROTOCOL DOSE RATE RUNNING AT 1100UNITS/HR, 22ML/HR. PATIENT SHOWS NO SIGNS OF ACTIVE BLEEDING. PTT ORDERED FOR 09/17/20 AT 0600HRS.
[2020-09-17 05:59] LABS: BASOPHILS % (AUTO) 0.3 % (0.0-2.0); EOSINOPHILS % (AUTO) 14.9 % (0.0-6.0); HEMATOCRIT 27 % (33-45); HEMOGLOBIN 8.5 g/dL (11.5-14.8); LYMPHOCYTES # (AUTO) 0.7 /CMM (0.8-4.8); LYMPHOCYTES % (AUTO) 4.6 % (20.0-44.0); MEAN CORPUSCULAR HGB CONC 31 g/dl (31.0-36.0); MEAN CORPUSCULAR VOLUME 93 fL (82-100); MONOCYTES # (AUTO) 0.9 /CMM (0.1-1.30); NEUTROPHILS # (AUTO) 10.5 /CMM (1.8-8.9); NEUTROPHILS % (AUTO) 74.2 % (43.0-81.0); PLATELET COUNT (AUTO) 102 /CMM (150-450); RED BLOOD CELL COUNT(AUTO) 2.96 MIL/uL (4.0-5.2); WHITE BLOOD COUNT (AUTO) 14.2 K/uL (4.3-11.0)
[2020-09-17] MEDS: METOPROLOL TARTRATE 50 MG TABLET PO SCH ×5 (06:04→23:54)
--- NOTE | 2020-09-17 06:25 | NUR ---
MS/RN CLOSING NOTES PATIENT IN BED RESTING. PATIENT IS ALERT AND ORIENTED X 2. PATIENT BREATHING IS EVEN AND UNLABORED. NO SOB OR RESPIRATORY DISTRESS NOTED. PATIENT PLACED IN COMFORTABLE POSITION. PATIENT RUNNING HEPARIN DRIP AT 11OO UNITS/KG/HR ( 22ML/HR) PER PROTOCOL. PATIENT BM X 2, CLEAN AND KEEP DRY, WOUND TX DONE, PATIENT TURNED AND REPOSITIONED Q2H. ALL NEEDS HAVE BEEN MET DURING SHIFT. SAFETY MEASURES ARE IN PLACE, BED IS LOCKED AND PLACED IN THE LOW POSITION, SIDE RAILS UP X 3, CALL LIGHT IS WITHIN REACH. WILL ENDORSE CARE TO DAY SHIFT NURSE.
[2020-09-17 06:47] LABS: CALCIUM, SERUM 7.5 mg/dL (8.5-10.1); CREATININE 0.8 mg/dL (0.6-1.3); POTASSIUM 3.8 mmol/L (3.5-5.1)
--- NOTE | 2020-09-17 07:25 | NUR ---
MS RN CLOSING NOTES RECEIVED PATIENT AWAKE IN BED IN NO ACUTE SIGN SOF DISTRESS. HOB ELEVATED. A/O X 2. VERBALLY RESPONSIVE, APPEARS CONFUSED BUT NO S/S OF PAIN NOTED. PT IS ON DNR/DNI STATUS. ON 02 VIA N/C AT 2LPM, BREATHING IS EVEN AND UNLABORED. ON HEPARIN DRIP AT 11OO UNITS/KG/HR ( 22ML/HR) AT THIS TIME VIA RFA G#22, AWAITING RESULTS OF PTT THIS MORNING. IVF OF D51/2 NS INFUSING WELL TO RIGHT HAND G#22, NO S/S OF INFILTRATION AT SITE NOTED. SAFETY MEASURES IN PLACE: BED IS LOCKED AND IN LOW POSITION WITH SIDE RAILS UP X 3. CALL LIGHT IS WITHIN REACH. WILL CONTINUE TO MONITOR PT ACCORDINGLY. .
[2020-09-17] MEDS: PANTOPRAZOLE 40 MG TABLET.DR PO SCH (07:41)
[2020-09-17] MEDS: IPRATROPIUM NEB FS 0.5 MG/2.5 ML AMPUL.NEB NEB SCH ×4 (07:45→20:13)
[2020-09-17] MEDS: ALBUTEROL FS 2.5 MG/3 ML VIAL.NEB NEB SCH ×4 (07:45→20:13)
[2020-09-17 08:00] VITALS: BP 161/76
--- NOTE | 2020-09-17 08:21 | NUR ---
RN NOTES RECEIVED CALL FROM [facility] THAT PT'S APTT THIS MORNING WAS 98.6, HOLD HEPARIN FOR 1 HOUR, THEN DECREASE DRIP BY 3 UNITS/KG/HOUR, PER HEPARIN PROTOCOL. NEXT PTT DRAW AT 1350.
[2020-09-17] MEDS: ASPIRIN 81 MG TAB.CHEW PO SCH (08:32)
[2020-09-17] MEDS: LORATADINE 10 MG TABLET PO SCH (08:32)
[2020-09-17] MEDS: DOXYCYCLINE HYCLATE (100 MG) 100 MG TABLET PO SCH ×2 (08:32→21:33)
[2020-09-17] MEDS: predniSONE 20 MG TABLET PO SCH (08:32)
[2020-09-17] MEDS: HYDROCORTISONE 2.5% CREAM 28.4 GM TUBE TP SCH ×2 (08:43→17:35)
[2020-09-17] MEDS: ENSURE ENLIVE CHOC 237 ML CAN PO SCH ×3 (08:43→17:35)
[2020-09-17] MEDS: HEPARIN INFUSION/D5W 500 ML IV PRN ×2 (08:50→15:11)
--- NOTE | 2020-09-17 09:02 | NUR ---
RN NOTES HEPARIN DRIP RE-STARTED AT 0850 AT 850 U/HR (17ML/HR) AFTER HOLDING DRIP FOR ONE HOUR PER HEPARIN PROTOCOL RESULT FROM APTT THIS MORNING. NO S/S OR ACTIVE BLEEDING NOTED. WILL CONTINUE TO MONITOR PT.
--- NOTE | 2020-09-17 15:16 | NUR ---
RN MS NOTES LATEST PTT IS 48.3 THIS AFTERNOON. DOSAGE NO CHANGE. STILL 850 UNITS/HOUR (17 ML/HOUR). NEXT PTT DRAW IS A 0600 ON 09/18/20. WILL CONTINUE TO MONITOR THE PT.
[2020-09-17 16:00] VITALS: BP 112/61
--- NOTE | 2020-09-17 17:54 | NUR ---
RN NOTES DR ABBOTT CAME AND ASSESSED PT. HEPARIN DRIP DISCONTINUED AND CHANGED PT ON HEPARIN SQ. WILL CONTINUE TO MONITOR.
[2020-09-17] MEDS: IV D5/0.45 NACL 1,000 ML IV PRN (18:23)
--- NOTE | 2020-09-17 18:32 | NUR ---
MS RN CLOSING NOTES PT WAS SEEN AWAKE IN BED IN NO ACUTE SIGNS OF DISTRESS. A/O X 2. PT CAN BE FORGETFUL AT TIMES. NO S/S OF PAIN NOTED. PT IS ON DNR/DNI STATUS. PT ON 02 VIA N/C AT 2LPM, BREATHING IS EVEN AND UNLABORED. IVF OF D5 1/2 NS INFUSING WELL TO RIGHT FOREARM G#20, NO S/S OF INFILTRATION AT SITE NOTED. SAFETY MEASURES IN PLACE: BED IS LOCKED AND IN LOW POSITION WITH SIDE RAILS UP X 3. CALL LIGHT IS WITHIN REACH. WILL ENDORSE CONTINUITY OF CARE TO VICE PRESIDENT OF BUSINESS DEVELOPMENT NURSE.
--- NOTE | 2020-09-17 19:30 | NUR ---
MS/RN OPENING NOTES RECEIVED PATIENT IN BED RESTING. PATIENT IS ALERT AND ORIENTED X 3. PATIENT BREATHING IS EVEN AND UNLABORED. NO SOB OR RESPIRATORY DISTRESS NOTED. PATIENT PLACED IN COMFORTABLE POSITION. SAFETY MEASURES ARE IN PLACE, BED IS LOCKED AND PLACED IN THE LOW POSITION, SIDE RAILS UP X 3, CALL LIGHT IS WITHIN REACH. WILL CONTINUE WITH PATIENT PLAN OF CARE.
[2020-09-17 19:57] VITALS: BP 104/65
[2020-09-17] MEDS: HEPARIN SODIUM, PORCINE 5000 UNITS/1 ML VIAL SQ SCH (21:38)
--- NOTE | 2020-09-17 23:55 | NUR ---
MS/RN NOTES PATIENT BLOOD PRESSURE NOTED AT 102/59, P 71, RR 18 TEMP 98.5, OZ 96%. METOPROLOL 25 MG PO HELD FOR 0000HRS. PATIENT IN NO SIGNS OF ACUTE DISTRESS.
[2020-09-18] MEDS: METOPROLOL TARTRATE 50 MG TABLET PO SCH ×3 (05:16→17:31)
[2020-09-18] MEDS: HEPARIN SODIUM, PORCINE 5000 UNITS/1 ML VIAL SQ SCH ×3 (05:19→21:39)
[2020-09-18 06:09] LABS: BASOPHILS % (AUTO) 0.3 % (0.0-2.0); EOSINOPHILS % (AUTO) 8.2 % (0.0-6.0); HEMATOCRIT 27 % (33-45); HEMOGLOBIN 8.3 g/dL (11.5-14.8); LYMPHOCYTES # (AUTO) 0.6 /CMM (0.8-4.8); MEAN CORPUSCULAR HGB CONC 31 g/dl (31.0-36.0); MEAN CORPUSCULAR VOLUME 94 fL (82-100); MONOCYTES # (AUTO) 0.6 /CMM (0.1-1.30); MONOCYTES % (AUTO) 6.4 % (2.0-12.0); NEUTROPHILS # (AUTO) 7.8 /CMM (1.8-8.9); NEUTROPHILS % (AUTO) 79.1 % (43.0-81.0); PLATELET COUNT (AUTO) 95 /CMM (150-450); RED BLOOD CELL COUNT(AUTO) 2.85 MIL/uL (4.0-5.2); WHITE BLOOD COUNT (AUTO) 9.9 K/uL (4.3-11.0)
[2020-09-18 06:24] LABS: CALCIUM, SERUM 7.7 mg/dL (8.5-10.1); CREATININE 0.6 mg/dL (0.6-1.3); POTASSIUM 3.8 mmol/L (3.5-5.1)
--- NOTE | 2020-09-18 06:40 | NUR ---
MS/RN CLOSING NOTES PATIENT IN BED RESTING. PATIENT IS ALERT AND ORIENTED X 3. PATIENT BREATHING IS EVEN AND UNLABORED. NO SOB OR RESPIRATORY DISTRESS NOTED. ALL PATIENT NEEDS HAVE BEEN MET DURING SHIFT. SAFETY MEASURES ARE IN PLACE, BED IS LOCKED AND PLACED IN THE LOW POSITION, SIDE RAILS UP X 3, CALL LIGHT IS WITHIN REACH. WILL ENDORSE TO DAY SHIFT NURSE.
--- NOTE | 2020-09-18 07:27 | NUR ---
MSRN OPENING NOTES PATIENT IN BED RESTING. PATIENT IS ALERT AND ORIENTED X 2/3 PATIENT BREATHING IS EVEN AND UNLABORED. NO SOB OR RESPIRATORY DISTRESS NOTED. PATIENT PLACED IN COMFORTABLE POSITION. SAFETY MEASURES ARE IN PLACE, BED IS LOCKED AND PLACED IN THE LOW POSITION, SIDE RAILS UP X 3, CALL LIGHT IS WITHIN REACH.
[2020-09-18] MEDS: IPRATROPIUM NEB FS 0.5 MG/2.5 ML AMPUL.NEB NEB SCH ×4 (07:44→20:23)
[2020-09-18] MEDS: ALBUTEROL FS 2.5 MG/3 ML VIAL.NEB NEB SCH ×4 (07:44→20:23)
[2020-09-18 08:00] VITALS: BP 133/62
[2020-09-18] MEDS: LORATADINE 10 MG TABLET PO SCH (08:34)
[2020-09-18] MEDS: ASPIRIN 81 MG TAB.CHEW PO SCH (08:34)
[2020-09-18] MEDS: ENSURE ENLIVE CHOC 237 ML CAN PO SCH ×3 (08:34→17:30)
[2020-09-18] MEDS: DOXYCYCLINE HYCLATE (100 MG) 100 MG TABLET PO SCH (08:34)
[2020-09-18] MEDS: predniSONE 20 MG TABLET PO SCH (08:34)
[2020-09-18] MEDS: HYDROCORTISONE 2.5% CREAM 28.4 GM TUBE TP SCH ×2 (08:35→17:30)
[2020-09-18] MEDS: PANTOPRAZOLE 40 MG TABLET.DR PO SCH (08:38)
[2020-09-18 16:00] VITALS: BP 113/93
--- NOTE | 2020-09-18 18:41 | NUR ---
MS/RN CLOSING NOTES PATIENT IN BED RESTING. PATIENT IS ALERT AND ORIENTED X 3. PATIENT BREATHING IS EVEN AND UNLABORED. NO SOB OR RESPIRATORY DISTRESS NOTED. ALL PATIENT NEEDS HAVE BEEN MET DURING SHIFT. SAFETY MEASURES ARE IN PLACE, BED IS LOCKED AND PLACED IN THE LOW POSITION, SIDE RAILS UP X 3, CALL LIGHT IS WITHIN REACH
[2020-09-18 20:00] VITALS: BP 117/69
[2020-09-19] MEDS: METOPROLOL TARTRATE 50 MG TABLET PO SCH ×4 (00:21→17:52)
[2020-09-19] MEDS: HEPARIN SODIUM, PORCINE 5000 UNITS/1 ML VIAL SQ SCH ×2 (05:12→12:15)
[2020-09-19 06:43] LABS: BASOPHILS % (AUTO) 0.2 % (0.0-2.0); EOSINOPHILS % (AUTO) 18.2 % (0.0-6.0); HEMATOCRIT 32 % (33-45); LYMPHOCYTES # (AUTO) 0.7 /CMM (0.8-4.8); LYMPHOCYTES % (AUTO) 3.4 % (20.0-44.0); MEAN CORPUSCULAR HGB CONC 31 g/dl (31.0-36.0); MEAN CORPUSCULAR VOLUME 92 fL (82-100); MONOCYTES # (AUTO) 0.8 /CMM (0.1-1.30); MONOCYTES % (AUTO) 4.3 % (2.0-12.0); NEUTROPHILS # (AUTO) 14.5 /CMM (1.8-8.9); NEUTROPHILS % (AUTO) 73.9 % (43.0-81.0); PLATELET COUNT (AUTO) 117 /CMM (150-450); RED BLOOD CELL COUNT(AUTO) 3.48 MIL/uL (4.0-5.2); WHITE BLOOD COUNT (AUTO) 19.6 K/uL (4.3-11.0)
[2020-09-19 06:53] LABS: CALCIUM, SERUM 8.5 mg/dL (8.5-10.1); CREATININE 0.7 mg/dL (0.6-1.3); POTASSIUM 3.8 mmol/L (3.5-5.1)
--- NOTE | 2020-09-19 07:27 | NUR ---
MS RN OPENING NOTES PATIENT IN BED AWAKE, RESTING. PATIENT IS ALERT AND ORIENTED X 2/3, BUT ABLE TO MAKE NEEDS KNOWN. PATIENT BREATHING IS EVEN AND UNLABORED. PATIENT IS ON 2LPM VIA NASAL CANNULA SATURATION 96% PER REPORT. NO SOB OR RESPIRATORY DISTRESS NOTED. PATIENT PLACED IN COMFORTABLE POSITION. SAFETY MEASURES ARE IN PLACE, BED IS LOCKED AND PLACED IN THE LOW POSITION, SIDE RAILS UP X 3, CALL LIGHT IS WITHIN REACH. WILL CONTINUE TO MONITOR THROUGHOUT SHIFT.
[2020-09-19] MEDS: ALBUTEROL FS 2.5 MG/3 ML VIAL.NEB NEB SCH ×3 (07:57→15:13)
[2020-09-19] MEDS: IPRATROPIUM NEB FS 0.5 MG/2.5 ML AMPUL.NEB NEB SCH ×3 (07:57→15:13)
[2020-09-19 08:00] VITALS: BP 125/74
[2020-09-19] MEDS: PANTOPRAZOLE 40 MG TABLET.DR PO SCH (08:28)
[2020-09-19] MEDS: predniSONE 20 MG TABLET PO SCH (08:29)
[2020-09-19] MEDS: ASPIRIN 81 MG TAB.CHEW PO SCH (08:29)
[2020-09-19] MEDS: LORATADINE 10 MG TABLET PO SCH (08:29)
[2020-09-19] MEDS: ENSURE ENLIVE CHOC 237 ML CAN PO SCH ×3 (08:38→16:15)
[2020-09-19] MEDS: HYDROCORTISONE 2.5% CREAM 28.4 GM TUBE TP SCH ×2 (08:39→16:15)
--- NOTE | 2020-09-19 11:21 | NUR ---
RN NOTES RECEIVED A CALL FROM [facility]. PATIENT WILL BE GOING TO A [facility]. THE FACILITY REQUESTED A RAPID COVID-19 TEST TO BE PERFORMED BEFORE TRANSFER. LAB AWARE WILL ACADEMIC GUIDANCE SPECIALIST TEST KIT.
--- NOTE | 2020-09-19 11:50 | NUR ---
RN NOTES OBTAIN NASAL SPECIMEN FOR COVID-19 TEST. PATIENT TOLERATED WELL. WILL DELIVER TO THE LAB.
--- NOTE | 2020-09-19 12:29 | NUR ---
RN NOTES RAPID COVID NEGATIVE TEST RESULT RECEIVED FROM LAB TODAY.
--- NOTE | 2020-09-19 15:05 | NUR ---
RT NOTE: MEDS NOT GIVEN DUE TO BEEN BUSY WITH OTHER PATIENTS.
[2020-09-19] MEDS ORDERED: LORA10TA7 PO (15:08)
[2020-09-19] MEDS ORDERED: ASPI-1169 PO (15:08)
[2020-09-19] MEDS ORDERED: HYDROCORTISONE 2.5% TP (15:08)
[2020-09-19] MEDS ORDERED: ALBUT2 NEB (15:08)
[2020-09-19] MEDS ORDERED: LACT-54 PO (15:08)
[2020-09-19] MEDS ORDERED: RIVA15TA PO (15:08)
[2020-09-19] MEDS ORDERED: PANT40TA2 PO (15:08)
[2020-09-19] MEDS ORDERED: DIPH25CA49 PO (15:08)
[2020-09-19] MEDS ORDERED: IPRA0.2S9 NEB (15:08)
[2020-09-19] MEDS ORDERED: METH4TAB17 PO (15:08)
[2020-09-19] MEDS ORDERED: METO50TA16 PO (15:08)
[2020-09-19 16:00] VITALS: BP 104/66
[2020-09-19 17:52] VITALS: BP 104/65
--- NOTE | 2020-09-19 19:07 | NUR ---
MS BAR HOST/HOSTESS NOTE PATIENT IN BED AWAKE, RESTING. PATIENT IS ALERT AND ORIENTED X 2/3, BUT ABLE TO MAKE NEEDS KNOWN. PATIENT BREATHING IS EVEN AND UNLABORED. PATIENT IS ON 2LPM VIA NASAL CANNULA SATURATION 96%. SKIN IS INTACT WITH SOME ECCHYMOSIS ON LUE AND GENERALIZED RASH THAT WAS UPON ADMISSION. NO SOB OR RESPIRATORY DISTRESS NOTED. PATIENT PLACED IN COMFORTABLE POSITION. RECEIVED ORDER FOR DISCHARGE TO A BOARD & CARE FACILLITY ([facility] [phone]). EMT PICKED UP PATIENT AND DISCHARGE INSTRUCTIONS WERE GIVEN BOTH VERBALLY AND IN WRITTEN FORM.
== END 2020-09-19 19:00 | disposition hospice, home (50) | DRG 64 ==
LOC: ER 12:17 → TELE 15:16 → MED 09-05 08:06 → TELE 09-07 13:19 → MED 09-09 08:08
PROVIDERS: ADMIT Nurse Practitioner Acute Care; ATTEND Nurse Practitioner Acute Care
PROC: 0HBBXZX Excision of Right Upper Arm Skin, External Approach, Diagnostic (ICD-10-PCS; principal; 2020-09-06)
DX: I63.9 Cerebral infarction, unspecified (principal); I21.4 Non-ST elevation (NSTEMI) myocardial infarction; N17.0 Acute kidney failure with tubular necrosis; E43 Unspecified severe protein-calorie malnutrition; G92 Toxic encephalopathy; J45.901 Unspecified asthma with (acute) exacerbation; D68.69 Other thrombophilia; C15.9 Malignant neoplasm of esophagus, unspecified; C78.7 Secondary malignant neoplasm of liver and intrahepatic bile duct; E86.0 Dehydration; Z20.822 Contact with and (suspected) exposure to COVID-19; D64.9 Anemia, unspecified; E03.9 Hypothyroidism, unspecified; I10 Essential (primary) hypertension; K74.60 Unspecified cirrhosis of liver; Z87.891 Personal history of nicotine dependence; E88.09 Other disorders of plasma-protein metabolism, not elsewhere classified; L51.9 Erythema multiforme, unspecified; R53.1 Weakness; D69.59 Other secondary thrombocytopenia; Z68.33 Body mass index [BMI] 33.0-33.9, adult; L30.9 Dermatitis, unspecified; Z66 Do not resuscitate; D72.18 Eosinophilia in diseases classified elsewhere; L30.8 Other specified dermatitis; R29.720 NIHSS score 20; R40.2142 Coma scale, eyes open, spontaneous, at arrival to emergency department; R40.2242 Coma scale, best verbal response, confused conversation, at arrival to emergency department; R40.2362 Coma scale, best motor response, obeys commands, at arrival to emergency department
CPT/HCPCS: 36415; 70450-TC; 70553-TC; 71045-TC; 76700-TC; 80048-TC; 80053-TC; 80061-TC; 80076-TC; 80202-TC; 81001; 82140-TC; 82272-TC; 82550-TC; 82728-TC; 82784; 82962-TC; 83540-TC; 83605-TC; 83735-TC; 84100-TC; 84155; 84165; 84439-TC; 84443-TC; 84484-TC; 84703-TC; 85025-TC; 85610-TC; 85730-TC; 86140-TC; 86225; 86235; 86334; 86431-TC; 86706; 86803; 87040-TC; 87081-TC; 87340; 88305-TC; 92526; 92611-TC; 93307-TC; 94762-TC; 94799-TC; 97110-TC; 97112-TC; 97530-TC; 97535-TC; A9575; C9113; C9803; G0378; G0480; J0696; J1644; J1650; J2930; J3370; J3490; J7030; J7042; J7060